=== PATIENT | female | born 1965 | race Caucasian/White ===

== ENCOUNTER 2018-08-23 00:52 | Emergency (ER) | payer BC ==
--- NOTE | 2018-08-23 01:35 | ED ---
General Adult HPI - General Chief complaint: Psychiatric Symptoms Stated complaint: petition Time Seen by Provider: 08/23/18 01:01 Source: patient Mode of arrival: ambulatory Limitations: no limitations - History of Present Illness Initial comments: Dictation was produced using [employer] dictation software. please excuse any grammatical, word or spelling errors. Chief Complaint: 53-year-old female presents with suicidal ideation. History of Present Illness: Patient is a 53-year-old female presents with suicidal ideation. Police was called for concern of suicidal ideation versus suicide attempt. Line first with was notified over the phone by a friend. Patient allegedly told the face. Friend that she was given overdose. Patient has been upset given that her children and grandchildren do not want to speak with her. Patient states she was given overdose on Unisom pills. She states that she isn't feeling suicidal anymore. She states she did not take anything today. The ROS documented in this emergency department record has been reviewed and confirmed by me. Those systems with pertinent positive or negative responses have been documented in the HPI. All other systems are other negative and/or noncontributory. PHYSICAL EXAM: General Impression: Alert and oriented x3, not in acute distress HEENT: Normocephalic atraumatic, extra-ocular movements intact, pupils equal and reactive to light bilaterally, mucous membranes moist. Cardiovascular: Heart regular rate and rhythm, S1&S2 audible, no murmurs, rubs or gallops Chest: Lungs clear to auscultation bilaterally, no rhonchi, no wheeze, no rales Abdomen: Bowel sounds present, abdomen soft, non-tender, non-distended, no organomegaly Musculoskeletal: Pulses present and equal in all extremities, no peripheral edema Motor: Power 5/5 bilaterally, no focal deficits noted Neurological: CN II-XII grossly intact, no focal motor or sensory deficits noted Skin: Intact with no visualized rashes Psych: Tearful ED course: 53-year-old female with suicidal ideation. Vital signs upon arrival are within acceptable limits. Patient evaluated medically cleared for EPS evaluation. Patient was evaluated by EPS deemed to be stable for discharge with good outpatient plan. Patient's instructed to follow-up with therapist for assistance with coping mechanisms. Patient not suicidal at this time. She is coherent and showing no signs of psychosis. Patient clear for discharge. - Related Data Allergies Allergy/AdvReac Type Severity Reaction Status Date / Time codeine AdvReac Rash/Hives Verified 08/23/18 00:59 Review of Systems ROS Statement: Those systems with pertinent positive or pertinent negative responses have been documented in the HPI. ROS Other: All systems not noted in ROS Statement are negative. Past Medical History Past Medical History: Hyperlipidemia History of Any Multi-Drug Resistant Organisms: None Reported Past Surgical History: Hysterectomy, Tubal Ligation Past Psychological History: Bipolar Smoking Status: Current every day smoker Past Alcohol Use History: None Reported Past Drug Use History: None Reported General Exam Limitations: no limitations Course Vital Signs 08/23/18 08/23/18 00:55 02:20 Temperature 98.3 F Pulse Rate 109 H Respiratory 18 19 Rate Blood Pressure 113/67 O2 Sat by Pulse 95 Oximetry Disposition Clinical Impression: Suicidal thoughts Disposition: HOME SELF-CARE Condition: Good Instructions (If sedation given, give patient instructions): Help Prevent Suicide in Older Adults (ED) Is patient prescribed a controlled substance at d/c from ED?: No Referrals: Tim Chao MD [Primary Care Provider] - 1-2 days Time of Disposition: 03:01
[2018-08-23 03:15] VITALS: BP 126/88; PULSE 78; RESP 16; TEMP 97.9
== END 2018-08-23 03:13 | disposition home or self-care (01) ==
LOC: EC 00:52
DX: R45.851 Suicidal ideations (principal); F17.200 Nicotine dependence, unspecified, uncomplicated; Z88.5 Allergy status to narcotic agent
CPT/HCPCS: 99285

== ENCOUNTER → 2019-02-05 | Outpatient (CLI) | payer BC | END | disposition home or self-care (01) | LOC: CPPFTMAIN 11:04 | PROVIDERS: ATTEND Internal Medicine | DX: J44.9 Chronic obstructive pulmonary disease, unspecified (principal); J98.4 Other disorders of lung | CPT/HCPCS: 94060; 94726; 94729 ==

== ENCOUNTER → 2019-02-21 | Outpatient (CLI) | payer BC ==
--- NOTE | 2019-02-24 09:44 | CT ---
EXAMINATION TYPE: High-resolution CT chest DATE OF EXAM: 02/21/2019 COMPARISON: 10/21/2012 HISTORY: 53-year-old female Shortness of breath, cough and interstitial lung disease. TECHNIQUE: Contiguous high-resolution axial scanning of the chest without IV contrast utilizing 1 mm slice thickness and 1 cm gap or HRCT protocol. Both supine and prone imaging was performed. CT DLP: 955.7 mGycm Automated exposure control for dose reduction was used. FINDINGS: Heart normal size with trace pericardial fluid effusion. Aorta normal caliber with conventional branching anatomy. No thoracic lymphadenopathy by CT size criteria allowing for HRCT technique. Scattered patchy areas of groundglass/mosaic attenuation. Overall distributions of the groundglass si milar between the supine and prone images. No honeycombing or dominant cystic change. No well-defined bronchiectasis, centrilobular nodules, thi ckening of the bronchovascular bundles, or tree-in-bud opacities. No pleural effusion. The patchy groundglass shows overall similar appearance to the 2012 exam. HRCT technique limits assessment for small pulmonary nodules. Visualized upper abdomen shows no gross abnormality. Bones: No osseous destructive process. IMPRESSION: 1. STABLE PATCHY AREAS OF GROUNDGLASS COULD REPRESENT PARENCHYMAL DISEASE SUCH IN THE SETTING OF N SIP OR MOSAIC ATTENUATION/AIR TRAPPING IN THE SETTING OF SMALL AIRWAYS DISEASE. OVERALL APPEARANCE IS SIMILAR DATING BACK TO 10/21/2012. NO HONEYCOMBING OR WELL-DEFINED BRONCHIECTASIS SEEN.
== END | disposition home or self-care (01) ==
LOC: RADCTMAIN 15:06
PROVIDERS: ATTEND Internal Medicine
DX: J98.8 Other specified respiratory disorders (principal); Z88.2 Allergy status to sulfonamides
CPT/HCPCS: 71250

== ENCOUNTER 2019-11-12 09:53 | Observation (INO) | payer BC ==
[2019-11-12] MEDS ORDERED: SODIUM CHLORIDE 0.9% 500 ML 500 ML IV STA (10:02)
[2019-11-12] MEDS ORDERED: methylPREDNISolone SOD SUCCI 125 MG/2 ML VIAL IV STA (10:02)
--- NOTE | 2019-11-12 10:09 | ED ---
General Adult HPI - General Chief complaint: Shortness of Breath Stated complaint: SOB,tachycardia Time Seen by Provider: 11/12/19 09:59 Source: patient, RN notes reviewed, old records reviewed Mode of arrival: ambulatory Limitations: no limitations - History of Present Illness Initial comments: 54-year-old female with COPD, current smoker presenting for evaluation of cough and dyspnea. Patient was seen by her business objects developer Dr. Haider this morning and sent in for evaluation and concern for pulmonary embolism. Patient was hypoxic and tachycardic in the office. Oxygen saturation of 85% with a heart rate in the 140s. She was recently admitted for COPD exacerbation approximately one week ago at an outside hospital. She continues to have cough and dyspnea. She denies central chest pain. Denies fever or chills. She denies lower extremity pain or swelling. Denies vomiting or diarrhea. - Related Data Allergies Allergy/AdvReac Type Severity Reaction Status Date / Time codeine AdvReac Rash/Hives Verified 11/12/19 10:00 Review of Systems ROS Statement: Those systems with pertinent positive or pertinent negative responses have been documented in the HPI. ROS Other: All systems not noted in ROS Statement are negative. Past Medical History Past Medical History: COPD, Hyperlipidemia History of Any Multi-Drug Resistant Organisms: None Reported Past Surgical History: Section, Hysterectomy, Tubal Ligation Past Psychological History: Bipolar Smoking Status: Current every day smoker Past Alcohol Use History: None Reported Past Drug Use History: None Reported General Exam Limitations: no limitations General appearance: alert, in no apparent distress Head exam: Present: atraumatic, normocephalic Eye exam: Present: normal appearance, PERRL ENT exam: Present: normal exam Neck exam: Present: normal inspection. Absent: tenderness, meningismus Respiratory exam: Present: respiratory distress, wheezes, rales Cardiovascular Exam: Present: normal rhythm, tachycardia GI/Abdominal exam: Present: soft, distended. Absent: tenderness, guarding, rebound Extremities exam: Present: normal inspection, normal capillary refill. Absent: pedal edema, calf tenderness Neurological exam: Present: alert, oriented X3, CN II-XII intact. Absent: motor sensory deficit Psychiatric exam: Present: normal affect, normal mood Skin exam: Present: warm, dry, intact. Absent: cyanosis, diaphoretic Course Vital Signs 05/27/20 05/27/20 09:57 10:40 Temperature 99.4 F Pulse Rate 122 H 112 H Respiratory 22 22 Rate Blood Pressure 123/70 143/92 O2 Sat by Pulse 94 L 95 Oximetry EKG Findings - EKG Comments: EKG Findings:: EKG: Sinus tachycardia, rate of 1:15, rightward access, VA interval 148, QRS duration 66, QTC 434, no ST segment elevation. Medical Decision Making - Medical Decision Making 54-year-old female with COPD. Chest x-ray negative for pneumothorax, no focal pneumonia. Patient sent in to rule out pulmonary embolism, CT angiography is negative for PE. She has a normal CBC with the exception of mild leukocytosis, normal electrolytes, elevated glucose. She has a negative troponin, negative BNP. She will be admitted for COPD exacerbation. Case is discussed with Dr. Manuel who will admit. - Lab Data Result diagrams: 11/12/19 10:24 11/12/19 10:24 Lab Results 11/12/19 11/12/19 11/12/19 Range/Units 10:24 10:24 10:24 WBC 12.3 H (3.8-10.6) k/uL RBC 5.15 (3.80-5.40) m/uL Hgb 15.4 (11.4-16.0) gm/dL Hct 47.0 H (34.0-46.0) % MCV 91.3 (80.0-100.0) fL MCH 29.8 (25.0-35.0) pg MCHC 32.7 (31.0-37.0) g/dL RDW 13.5 (11.5-15.5) % Plt Count 200 (150-450) k/uL Neutrophils % 73 % Lymphocytes % 18 % Monocytes % 5 % Eosinophils % 2 % Basophils % 0 % Neutrophils # 9.0 H (1.3-7.7) k/uL Lymphocytes # 2.2 (1.0-4.8) k/uL Monocytes # 0.7 (0-1.0) k/uL Eosinophils # 0.2 (0-0.7) k/uL Basophils # 0.0 (0-0.2) k/uL PT 9.8 (9.0-12.0) sec INR 0.9 (<1.2) APTT 25.4 (22.0-30.0) sec Sodium 136 L (137-145) mmol/L Potassium 4.5 (3.5-5.1) mmol/L Chloride 105 (98-107) mmol/L Carbon Dioxide 21 L (22-30) mmol/L Anion Gap 10 mmol/L BUN 13 (7-17) mg/dL Creatinine 0.56 (0.52-1.04) mg/dL Est GFR (CKD-EPI)AfAm >90 (>60 ml/min/1.73 sqM) Est GFR (CKD-EPI)NonAf >90 (>60 ml/min/1.73 sqM) Glucose 254 H (74-99) mg/dL Calcium 9.3 (8.4-10.2) mg/dL Magnesium 1.7 (1.6-2.3) mg/dL Total Bilirubin 0.2 (0.2-1.3) mg/dL AST 24 (14-36) U/L ALT 24 (4-34) U/L Alkaline Phosphatase 106 (38-126) U/L Troponin I (0.000-0.034) ng/mL NT-Pro-B Natriuret Pep pg/mL Total Protein 7.4 (6.3-8.2) g/dL Albumin 4.3 (3.5-5.0) g/dL 11/12/19 11/12/19 Range/Units 10:24 10:24 WBC (3.8-10.6) k/uL RBC (3.80-5.40) m/uL Hgb (11.4-16.0) gm/dL Hct (34.0-46.0) % MCV (80.0-100.0) fL MCH (25.0-35.0) pg MCHC (31.0-37.0) g/dL RDW (11.5-15.5) % Plt Count (150-450) k/uL Neutrophils % % Lymphocytes % % Monocytes % % Eosinophils % % Basophils % % Neutrophils # (1.3-7.7) k/uL Lymphocytes # (1.0-4.8) k/uL Monocytes # (0-1.0) k/uL Eosinophils # (0-0.7) k/uL Basophils # (0-0.2) k/uL PT (9.0-12.0) sec INR (<1.2) APTT (22.0-30.0) sec Sodium (137-145) mmol/L Potassium (3.5-5.1) mmol/L Chloride (98-107) mmol/L Carbon Dioxide (22-30) mmol/L Anion Gap mmol/L BUN (7-17) mg/dL Creatinine (0.52-1.04) mg/dL Est GFR (CKD-EPI)AfAm (>60 ml/min/1.73 sqM) Est GFR (CKD-EPI)NonAf (>60 ml/min/1.73 sqM) Glucose (74-99) mg/dL Calcium (8.4-10.2) mg/dL Magnesium (1.6-2.3) mg/dL Total Bilirubin (0.2-1.3) mg/dL AST (14-36) U/L ALT (4-34) U/L Alkaline Phosphatase (38-126) U/L Troponin I <0.012 (0.000-0.034) ng/mL NT-Pro-B Natriuret Pep 23 pg/mL Total Protein (6.3-8.2) g/dL Albumin (3.5-5.0) g/dL Critical Care Time Critical Care Time: Yes Total Critical Care Time: 35 Disposition Clinical Impression: Acute exacerbation of chronic obstructive pulmonary disease Disposition: ADMITTED IP TO THIS [facility] Condition: Stable Is patient prescribed a controlled substance at d/c from ED?: No Referrals: Tim Chao MD [Primary Care Provider] - 1-2 days Decision to Admit Reason: Admit from EC Decision Date: 11/12/19 Decision Time: 11:33
--- NOTE | 2019-11-12 10:28 | XR ---
EXAMINATION TYPE: XR chest 1V portable DATE OF EXAM: 11/12/2019 COMPARISON: Chest x-ray April 17, 2011. CT chest high resolution February 21, 2019 HISTORY: Difficulty in breathing. TECHNIQUE: Single AP portable frontal view of the chest is obtained. FINDINGS: There is some chronic parenchymal change without suspicious focal air space opacity, pleur al effusion, or pneumothorax seen. The cardiac silhouette size is stable and mildly enlarged. The osseous structures are intact. IMPRESSION: Chronic changes and mild cardiomegaly without acute pulmonary process.
[2019-11-12 10:43] LABS: Basophils % (A) 0 %; Eosinophils # (A) 0.2 k/uL (0-0.7); Eosinophils % (A) 2 %; HGB 15.4 gm/dL (11.4-16.0); Lymphocytes # (A) 2.2 k/uL (1.0-4.8); Lymphocytes % (A) 18 %; MCH 29.8 pg (25.0-35.0); MCHC 32.7 g/dL (31.0-37.0); MCV 91.3 fL (80.0-100.0); Mean Platelet Volume 9.7; Monocytes # (A) 0.7 k/uL (0-1.0); Monocytes % (A) 5 %; Neutrophils % (A) 73 %; Platelet Count 200 k/uL (150-450); RBC 5.15 m/uL (3.80-5.40); RDW 13.5 % (11.5-15.5); WBC 12.3 k/uL (3.8-10.6)
[2019-11-12 10:54] LABS: INR 0.9 (<1.2); Partial Thromboplastin Time 25.4 sec (22.0-30.0); Prothrombin Time 9.8 sec (9.0-12.0)
[2019-11-12 10:55] LABS: Albumin 4.3 g/dL (3.5-5.0); Chloride 105 mmol/L (98-107); Glucose 254 mg/dL (74-99); Potassium 4.5 mmol/L (3.5-5.1); Total Protein 7.4 g/dL (6.3-8.2)
[2019-11-12 10:56] LABS: ALT 24 U/L (4-34); AST 24 U/L (14-36); African American GFR (CKD) >90 (>60 ml/min/1.73 sqM); Alkaline Phosphatase 106 U/L (38-126); Anion Gap 10 mmol/L; Blood Urea Nitrogen 13 mg/dL (7-17); Calcium 9.3 mg/dL (8.4-10.2); Carbon Dioxide 21 mmol/L (22-30); Magnesium 1.7 mg/dL (1.6-2.3); Non-African American GFR(CKD) >90 (>60 ml/min/1.73 sqM); Sodium 136 mmol/L (137-145); Total Bilirubin 0.2 mg/dL (0.2-1.3)
--- NOTE | 2019-11-12 11:22 | CT ---
EXAMINATION TYPE: CT angio chest DATE OF EXAM: 11/12/2019 COMPARISON: 02/21/2019 HISTORY: SOB CT DLP: 492.5 mGycm CONTRAST: CT chest with contrast and 3D reconstruction with MIP imaging is performed with IV Contrast, patient injected with 100 mL of Isovue 370. Contrast-enhanced CT of the chest was performed through the course of the pulmonary arteries with anaid g and mediastinal window settings submitted. 3D reconstruction with MIP imaging was also performed. PULMONARY ARTERIES: The pulmonary arteries and their major tributaries are patent. I do not see maris dence for sizable filling defect to suggest pulmonary embolic process. LUNGS: There is scattered subpleural fibrosis as well as chronic appearing groundglass infiltrates. N o evidence for airspace consolidation. Right middle lobe linear atelectasis. MEDIASTINUM: Thoracic aorta is of normal caliber,however, evaluation is limited given timing of the contrast bolus. If there is concern for thoracic aortic pathology consider MARGIE. Correlate clinicall y . The heart is not enlarged. No evidence for mediastinal mass. No mediastinal lymph nodes greater than 1cm. HILAR STRUCTURES: No evidence for mass. No hilar lymph nodes greater than 1 cm. UPPER ABDOMEN: No significant abnormality is seen. IMPRESSION: 1. No evidence for Pulmonary embolism at this time.
[2019-11-12] MEDS ORDERED: IPRATROPIUM-ALBUTEROL 3 ML NEB INHALATION PRN (11:29)
[2019-11-12] MEDS ORDERED: SODIUM CHLORIDE 0.9% 500 ML 500 ML IV ONE (11:32)
[2019-11-12] MEDS ORDERED: ALBUTEROL NEBULIZED 2.5 MG/3 ML INHALATION PRN (11:32)
[2019-11-12] MEDS: SODIUM CHLORIDE 0.9% 1,000 ML IV SCH (12:48)
--- NOTE | 2019-11-12 13:51 | P.HPIM ---
History of Present Illness 53-year-old female with known history of COPD was recently discharged from [facility] hospital came back with shortness of breath significant wheezing cough without any significant sputum production. Patient has significant wheezing on exam continues to smoke about pack per day patient used to smoke more than that. Patient had a CT angios the pulmonary embolism which did not show any PERRLA pneumonia chest x-ray is within normal limits as well. Patient blood sugars are high we will obtain hemoglobin A1c recently started on sliding scale insulin cut down the steroids to 40 twice a day IV the patient doesn't use any oxygen at home presently on 3 L and patient was told that she will require oxygen at home by her civil laboratory technician Dr. Haider Review of Systems REVIEW OF SYSTEMS: CONSTITUTIONAL: No fever, no malaise, no fatigue. HEENT: No recent visual problems or hearing problems. Denied any sore throat. CARDIOVASCULAR: No chest pain, orthopnea, PND, no palpitations, no syncope. PULMONARY: As mentioned in HPI GASTROINTESTINAL: No diarrhea, no nausea, no vomiting, no abdominal pain. NEUROLOGICAL: No headaches, no weakness, no numbness. HEMATOLOGICAL: Denies any bleeding or petechiae. GENITOURINARY: Denies any burning micturition, frequency, or urgency. MUSCULOSKELETAL/RHEUMATOLOGICAL: Denies any joint pain, swelling, or any muscle pain. ENDOCRINE: Denies any polyuria or polydipsia. The rest of the 14-point review of systems is negative. Past Medical History Past Medical History: COPD, Hyperlipidemia History of Any Multi-Drug Resistant Organisms: None Reported Past Surgical History: Section, Hysterectomy, Tubal Ligation Past Psychological History: Bipolar Smoking Status: Current every day smoker Past Alcohol Use History: None Reported Past Drug Use History: None Reported Medications and Allergies Allergies Allergy/AdvReac Type Severity Reaction Status Date / Time codeine AdvReac Rash/Hives Verified 11/12/19 10:00 Physical Exam Vitals: Vital Signs Temp Pulse Resp BP Pulse Ox 11/12/19 11:36 99.2 F 105 H 20 138/78 95 11/12/19 10:40 112 H 22 143/92 95 11/12/19 09:57 99.4 F 122 H 22 123/70 94 L Intake and Output 11/11/19 11/12/19 11/12/19 22:59 06:59 14:59 Other: Weight 87.543 kg PHYSICAL EXAMINATION: GENERAL: The patient is alert and oriented x3, not in any acute distress. Well developed, well nourished. HEENT: Pupils are round and equally reacting to light. EOMI. No scleral icterus. No conjunctival pallor. Normocephalic, atraumatic. No pharyngeal erythema. No thyromegaly. CARDIOVASCULAR: S1 and S2 present. No murmurs, rubs, or gallops. PULMONARY: Significantly limited air entry into bilateral lung sommers significant wheezing on exam. ABDOMEN: Soft, nontender, nondistended, normoactive bowel sounds. No palpable organomegaly. MUSCULOSKELETAL: No joint swelling or deformity. EXTREMITIES: No cyanosis, clubbing, or pedal edema. NEUROLOGICAL: Gross neurological examination did not reveal any focal deficits. SKIN: No rashes. Results CBC & Chem 7: 11/12/19 10:24 11/12/19 10:24 Labs: Abnormal Lab Results - Last 24 Hours (Table) 11/12/19 11/12/19 11/12/19 Range/Units 10:24 10:24 10:24 WBC 12.3 H (3.8-10.6) k/uL Hct 47.0 H (34.0-46.0) % Neutrophils # 9.0 H (1.3-7.7) k/uL Sodium 136 L (137-145) mmol/L Carbon Dioxide 21 L (22-30) mmol/L Glucose 254 H (74-99) mg/dL Plasma Lactic Acid Dre 2.4 H* (0.7-2.0) mmol/L Assessment and Plan Plan: -Acute hypoxic and hypercapnic respiratory failure: Secondary to COPD exacerbation can you suspect steroids inhalational treatments. IV fluids -Elevated blood sugars will rule out diabetes mellitus will obtain hemoglobin A 1C Carm[place] with sliding scale insulin -Continued nicotine use: Counseling was provided. DVT prophylaxis: Early ambulation
[2019-11-12] MEDS ORDERED: methylPREDNISolone SOD SUCCI 125 MG/2 ML VIAL IV SCH (14:00)
[2019-11-12 17:02] LABS: Glucose,Whole Blood 180 mg/dL (75-99)
[2019-11-12] MEDS: IPRATROPIUM-ALBUTEROL 3 ML NEB INHALATION SCH ×2 (20:26→20:27)
[2019-11-12] MEDS ORDERED: DIAZEPAM 5 MG TAB PO PRN (20:55)
[2019-11-12] MEDS ORDERED: PANTOPRAZOLE 40 MG TABLET PO SCH (21:00)
[2019-11-12] MEDS ORDERED: risperiDONE 1 MG TAB PO SCH (21:00)
[2019-11-12] MEDS ORDERED: FLUoxetine HCL 20 MG CAP PO SCH (21:00)
[2019-11-12] MEDS ORDERED: lamoTRIgine 100 MG TAB PO SCH (21:00)
[2019-11-12 22:18] LABS: Glucose,Whole Blood 193 mg/dL (75-99)
[2019-11-12 22:21] LABS: Hemoglobin A1C 5.5 % (4.0-6.0)
[2019-11-12] MEDS: FAMOTIDINE 20 MG TAB PO SCH ×2 (22:25→22:37)
[2019-11-12] MEDS: INSULIN ASPART (NovoLOG) 100 UNIT/ML VIAL SQ SCH ×2 (22:25→22:35)
[2019-11-12] MEDS: methylPREDNISolone SOD SUCCI 40 MG/ML 1 ML VIAL IV SCH (22:35)
[2019-11-12] MEDS: NICOTINE 14MG/24HR PATCH TRANSDERM SCH (22:47)
[2019-11-13] MEDS: SODIUM CHLORIDE 0.9% 1,000 ML IV SCH (01:51)
[2019-11-13 07:24] LABS: Glucose,Whole Blood 186 mg/dL (75-99)
[2019-11-13] MEDS: INSULIN ASPART (NovoLOG) 100 UNIT/ML VIAL SQ SCH ×2 (07:32→12:47)
[2019-11-13] MEDS: FAMOTIDINE 20 MG TAB PO SCH (07:33)
[2019-11-13] MEDS: methylPREDNISolone SOD SUCCI 40 MG/ML 1 ML VIAL IV SCH (07:33)
[2019-11-13] MEDS: NICOTINE 14MG/24HR PATCH TRANSDERM SCH (07:34)
[2019-11-13] MEDS: IPRATROPIUM-ALBUTEROL 3 ML NEB INHALATION SCH ×3 (07:38→16:36)
[2019-11-13] MEDS ORDERED: SYMBICORT 160-4.5 MCG INHALER INHALATION SCH (08:00)
[2019-11-13 08:11] VITALS: TEMP 98
[2019-11-13] MEDS ORDERED: ACETAMINOPHEN TAB 325 MG TAB PO PRN (08:34)
[2019-11-13] MEDS ORDERED: lamoTRIgine 100 MG TAB PO SCH (09:00)
[2019-11-13] MEDS ORDERED: ENOXAPARIN 40 MG/0.4 ML SYRINGE SQ SCH (09:00)
[2019-11-13 10:23] LABS: Basophils % (A) 0 %; Eosinophils % (A) 0 %; HCT 43.3 % (34.0-46.0); Lymphocytes # (A) 1.7 k/uL (1.0-4.8); Lymphocytes % (A) 10 %; MCH 30.5 pg (25.0-35.0); MCHC 32.5 g/dL (31.0-37.0); Mean Platelet Volume 10.2; Monocytes # (A) 0.7 k/uL (0-1.0); Monocytes % (A) 4 %; Neutrophils # (A) 14.1 k/uL (1.3-7.7); Neutrophils % (A) 84 %; Platelet Count 191 k/uL (150-450); RDW 13.7 % (11.5-15.5); WBC 16.7 k/uL (3.8-10.6)
[2019-11-13 10:40] LABS: African American GFR (CKD) >90 (>60 ml/min/1.73 sqM); Anion Gap 6 mmol/L; Blood Urea Nitrogen 10 mg/dL (7-17); Carbon Dioxide 24 mmol/L (22-30); Chloride 109 mmol/L (98-107); Glucose 194 mg/dL (74-99); Non-African American GFR(CKD) >90 (>60 ml/min/1.73 sqM); Potassium 4.6 mmol/L (3.5-5.1); Sodium 139 mmol/L (137-145)
[2019-11-13 10:59] VITALS: BP 132/70; RESP 16
[2019-11-13 11:59] LABS: Glucose,Whole Blood 168 mg/dL (75-99)
[2019-11-13 12:08] VITALS: PULSE 92
--- NOTE | 2019-11-13 12:22 | CONS ---
CONSULTATION PULMONARY/CRITICAL CARE CONSULTATION: DATE OF CONSULTATION: 11/13/2019 This is a 54-year-old female who sees my partner, Dr. Haider in the office. She apparently was seen there yesterday for a COPD exacerbation and Dr. Haider sent her over to the hospital to be evaluated and admitted to the hospital. She came with complaints of shortness of breath, chest tightness, cough, wheezing, and phlegm production. In addition, she was quite hypoxemic in the office. The saturations only in the mid 80s. She had a heart rate of 140. She has been smoking since the age of 13. Smokes about 1-1/2 packs a day. States today that she is going to quit smoking once and for all. Her primary care physician is Dr. Chao. She is feeling much better. She would like to be discharged home. I told her we would send her home on some O2 at 2 L/minute by nasal cannula and a prednisone burst and taper beginning with 40 mg a day for 4 days and tapering down by 10 mg every fifth day. In addition, she should follow up with Dr. Haider in the office. ALLERGIES: CODEINE. HOME MEDICATIONS: Include albuterol inhaler, diazepam, Risperdal, Symbicort, Protonix, Lamictal, nicotine patch, and Prozac. MEDICAL HISTORY: Includes COPD and hyperlipidemia. She also has a history of bipolar disorder. SURGICAL HISTORY: Includes tubal ligation, hysterectomy, and . SOCIAL HISTORY: Positive for ongoing tobacco use. She has been smoking since age of 13. She smokes 1- 1/2 packs a day. She states that she will quit smoking after this event. She denies any alcohol use or illicit drug use. FAMILY HISTORY: Noncontributory. Both mother and father were healthy. REVIEW OF SYSTEMS: CONSTITUTIONAL: Negative. NEUROLOGIC: Negative. HEENT: Negative. CARDIOVASCULAR: Negative. PULMONARY: Shortness of breath, chest tightness, wheezing, cough and brown phlegm production. GI: Negative. : Negative. RHEUMATOLOGIC: Negative. IMMUNOLOGIC: Negative. ENDOCRINOLOGIC: Negative. DERMATOLOGIC: Negative. Current vital signs are reviewed. Temperature is 98, heart rate 101, respiratory rate 16, blood pressure 132/70, mean 90, 3 L saturation 94%. Appears in no acute distress. No conversational dyspnea, use of accessory muscles or audible wheezing. HEENT: Examination is grossly unremarkable. Nasal O2 in place. NECK: Supple, full range of motion. No adenopathy or thyromegaly. Neck veins are flat. CARDIOVASCULAR: Examination reveals regular rhythm and rate. She is mildly tachycardic. Heart rate right around 100. It is in sinus. S1, S2 normal. Heart sounds are somewhat distant. There is no murmur. LUNGS: Reveal a few scattered expiratory rhonchi. No crackles. Mild prolongation on forced maneuver. Some mild expiratory wheezes on forced maneuver. ABDOMEN: Obese, bowel sounds are heard. EXTREMITIES: Intact. No cyanosis, clubbing, or edema. SKIN: Without rash. NEUROLOGIC: Examination is brief but nonfocal. She does move all 4 extremities. She is alert and oriented x3. LAB: Data is reviewed. White count 16.7, hemoglobin, hematocrit and platelet count all normal. Sodium 139, potassium 4.6, chloride is 109, CO2 is 24, anion gap is 6. BUN and creatinine were 10 and 0.46. Lactic acid was normal. Chest x-ray shows primarily changes of COPD with some mild chronic changes. There is also cardiomegaly. Chest CT is negative for pulmonary embolism. Current medications are reviewed. From the pulmonary standpoint, she is on Symbicort, albuterol, steroids, and DuoNeb. She is currently not on any oral antibiotic. ASSESSMENT: 1. Chronic obstructive pulmonary disease exacerbation complicated by purulent tracheobronchitis, without mireya pneumonia. 2. Ongoing tobacco use with nicotine addiction, somebody who has been smoking since the age of 13[address] angiogram evidence of pulmonary embolism at this time. 4. Obesity. 5. History of hyperlipidemia. 6. History of bipolar disorder. PLAN: From our perspective, the patient could be discharged home. She is feeling much better. She really asked to go home. I told her we could send her home as long she does not smoke. We warned her about the affects or the hazards of smoking while on oxygen therapy. We will send her home on O2 at 2 L. She will follow up with Dr. Haider. I also think we should send her home on prednisone with a burst and taper beginning with 40 mg a day for 4 days, reducing the dose by 10 mg every fifth day. In addition, she should go home on a short course of oral antibiotics and continue the current medications that she has on home. Ultimately, her success will be whether not she can actually stop smoking. There is a high rate of recidivism in the sorts of patients who smoke for this many years. I suspect that she will eventually start smoking again. No additional recommendations are made. Prognosis is guarded. Will continue to follow as needed. A copy of today's note will go to Dr. Chao and also to Dr. Hsu, my partner. MMODL / IJN: [id number] /
--- NOTE | 2019-11-13 14:34 | P.DS ---
Providers Date of admission: 11/12/19 11:29 Attending physician: Yudi Manuel Consults: 11/12/19 11:33 Consult Physician Routine Consulting Provider: Rakan Haider Consult Reason/Comments: COPD Do you want consulting provider notified?: Yes Primary care physician: Zhanna Dumont [place] [facility] Course: Patient is a 54-year-old the female admitted for COPD exacerbation, patient is still wheezing significantly my opinion patient will benefit from one or 2 more days of hospitalization but the patient is insisting on discharge and patient was cleared by pulmonology to be discharged as long as she is on some kind of a systemic steroids and doesn't smoke again I believe patient is going to do okay and the patient is being discharged on 2 L of oxygen. Patient requiring home oxygen at this point of time. Patient says that she is not to going to smoke again. PHYSICAL EXAMINATION: GENERAL: The patient is alert and oriented x3, not in any acute distress. Well developed, well nourished. HEENT: Pupils are round and equally reacting to light. EOMI. No scleral icterus. No conjunctival pallor. Normocephalic, atraumatic. No pharyngeal erythema. No thyromegaly. CARDIOVASCULAR: S1 and S2 present. No murmurs, rubs, or gallops. PULMONARY: Patient still has expiratory wheeze but Better Compared to Yesterday ABDOMEN: Soft, nontender, nondistended, normoactive bowel sounds. No palpable organomegaly. MUSCULOSKELETAL: No joint swelling or deformity. EXTREMITIES: No cyanosis, clubbing, or pedal edema. NEUROLOGICAL: Gross neurological examination did not reveal any focal deficits. SKIN: No rashes. Refer to HPI for further details of hospitalization and medical problems that were addressed during this hospitalization Patient Condition at Discharge: Stable Plan - Discharge Summary Discharge Rx Participant: No New Discharge Prescriptions: New Doxycycline Monohydrate [Monodox] 100 mg PO BID 3 Days #6 cap Famotidine [Pepcid] 20 mg PO BID #30 tablet predniSONE 10 mg PO DAILY #30 tab Ipratropium-Albuterol Nebulize [Duoneb 0.5 mg-3 mg/3 ml Soln] 3 ml INHALATION RT-QID ml Ipratropium-Albuterol Nebulize [Duoneb 0.5 mg-3 mg/3 ml Soln] 3 ml INHALATION RT-Q4H PRN ml PRN Reason: Shortness Of Breath Or Wheezin Continue Albuterol Inhaler [Ventolin Hfa Inhaler] 2 puff INHALATION RT-Q6H PRN PRN Reason: Shortness Of Breath Budesonide-Formot 160-4.5 Mcg [Symbicort 160-4.5 Mcg Inhaler] 2 puff INHALATION RT-BID Diazepam 10 mg PO TID PRN PRN Reason: Anxiety FLUoxetine HCL [PROzac] 20 mg PO HS lamoTRIgine 200 mg PO HS lamoTRIgine 100 mg PO QAM Nicotine 14Mg/24Hr Patch [Habitrol] 1 patch TRANSDERM DAILY Pantoprazole [Protonix] 40 mg PO HS risperiDONE 3 mg PO HS Discharge Medication List Albuterol Inhaler [Ventolin Hfa Inhaler] 2 puff INHALATION RT-Q6H PRN 11/12/19 [History] Budesonide-Formot 160-4.5 Mcg [Symbicort 160-4.5 Mcg Inhaler] 2 puff INHALATION RT-BID 11/12/19 [History] Diazepam 10 mg PO TID PRN 11/12/19 [History] FLUoxetine HCL [PROzac] 20 mg PO HS 11/12/19 [History] Nicotine 14Mg/24Hr Patch [Habitrol] 1 patch TRANSDERM DAILY 11/12/19 [History] Pantoprazole [Protonix] 40 mg PO HS 11/12/19 [History] lamoTRIgine 100 mg PO QAM 11/12/19 [History] lamoTRIgine 200 mg PO HS 11/12/19 [History] risperiDONE 3 mg PO HS 11/12/19 [History] Doxycycline Monohydrate [Monodox] 100 mg PO BID 3 Days #6 cap 11/13/19 [Rx] Famotidine [Pepcid] 20 mg PO BID #30 tablet 11/13/19 [Rx] Ipratropium-Albuterol Nebulize [Duoneb 0.5 mg-3 mg/3 ml Soln] 3 ml INHALATION RT-Q4H PRN ml 11/13/19 [Rx] Ipratropium-Albuterol Nebulize [Duoneb 0.5 mg-3 mg/3 ml Soln] 3 ml INHALATION RT-QID ml 11/13/19 [Rx] predniSONE 10 mg PO DAILY #30 tab 11/13/19 [Rx] Follow up Appointment(s)/Referral(s): Rakan Haider MD [STAFF PHYSICIAN] - 1 Week Tim Chao MD [Primary Care Provider] - 3 Days [facility],Equipment [NON-STAFF] - As Needed (oxygen and wheelchair) Activity/Diet/Wound Care/Special Instructions: Activity Limited until follow-up [facility] will deliver a portable oxygen tank to the bedside before discharge and a concentrator to the patient's house this evening. Patient to call [facility] to arrange delivery of the concentrator tonight: [phone]. A wheelchair will be delivered to the bedside as well. Follow-up with primary care provider upon discharge Follow-up with pulmonary in the outpatient setting Continue with a prednisone taper Continue with antibiotics until finished Continue current diet Avoid all tobacco use Discharge Disposition: HOME SELF-CARE
--- NOTE | 2019-11-13 14:42 | P.DS ---
Providers Date of admission: 11/12/19 11:29 Expected date of discharge: 11/13/19 Attending physician: Yudi Manuel Consults: 11/12/19 11:33 Consult Physician Routine Consulting Provider: Rakan Haider Reason/Comments: COPD Do you want consulting provider notified?: Yes Primary care physician: Zhanna Chou [place] [facility] Course: Final diagnosis -Acute hypoxic and hypercapnic respiratory failure: Secondary to COPD exacerbation -Elevated blood sugars ruled out diabetes mellitus, hemoglobin A1c is 5.5 -Continued nicotine use: Counseling was provided. -DVT prophylaxis Discharge disposition Patient is being discharged in a stable condition with guarded prognosis to home and will follow-up with Dr. Chao upon discharge. Patient will also follow-up with Dr. Haider in the outpatient setting. Patient will continue on a short course of oral antibiotics in the form of doxycycline for the next 3 days along with a prednisone taper. Patient also provided prescription for home O2 oxygen she is currently requiring 2 L via nasal cannula due to her COPD and shortness of breath. Total time taken is 35 minutes. History of present illness This is a 54-year-old female who was recently admitted with COPD and significant wheezing and was being closely monitored. Pulmonary evaluated the patient and patient will be following up outpatient with Dr. Haider. Patient underwent a CT angiogram which did not reveal any pulmonary embolism during hospitalization. Patient is about a 1-1/2 pack per day smoker and states that she will be attempting to quit tobacco use upon discharge. Discussed with the patient at length about avoiding any tobacco use and also stressed the importance of safety with the use of oxygen in the outpatient setting. Patient states that she does have prescriptions for nicotine patches and will get them filled this time. Patient continues to have dyspnea and low oxygen saturations in the 80s on room air and will require 2 L of home oxygen upon discharge. Patient will also continue on a prednisone taper along with a short course of oral doxycycline twice daily for the next 3 days. A prescription was provided for a wheelchair as patient becomes severely dyspneic with exertion requiring multiple rest periods when walking. Currently no reports of chest pain, worsening shortness of breath, or palpitations. Patient is afebrile. No reports of nausea or vomiting and patient is tolerating diet. Patient is requesting to go home today. Guarded prognosis. On exam vital signs are stable. Temp is 98.0F, pulse is 92, respirations are 16, blood pressure is 132/70, oxygen saturation is 94 % on 3 L via nasal cannula. Cardio S1, S2 are present. Respiratory system shows diminished breath sounds at the bases with no crackles or rhonchi noted. Mild expiratory wheezing noted on exam. Abdomen is soft and nontender. Nervous system shows no focal deficits. Please refer to medication reconciliation sheet for a list of medications. Patient Condition at Discharge: Stable Plan - Discharge Summary Discharge Rx Participant: No New Discharge Prescriptions: New Doxycycline Monohydrate [Monodox] 100 mg PO BID 3 Days #6 cap predniSONE 10 mg PO DAILY #30 tab Ipratropium-Albuterol Nebulize [Duoneb 0.5 mg-3 mg/3 ml Soln] 3 ml INHALATION RT-QID ml Ipratropium-Albuterol Nebulize [Duoneb 0.5 mg-3 mg/3 ml Soln] 3 ml INHALATION RT-Q4H PRN ml PRN Reason: Shortness Of Breath Or Wheezin Continue Albuterol Inhaler [Ventolin Hfa Inhaler] 2 puff INHALATION RT-Q6H PRN PRN Reason: Shortness Of Breath Budesonide-Formot 160-4.5 Mcg [Symbicort 160-4.5 Mcg Inhaler] 2 puff INHALATION RT-BID Diazepam 10 mg PO TID PRN PRN Reason: Anxiety FLUoxetine HCL [PROzac] 20 mg PO HS lamoTRIgine 200 mg PO HS lamoTRIgine 100 mg PO QAM Nicotine 14Mg/24Hr Patch [Habitrol] 1 patch TRANSDERM DAILY Pantoprazole [Protonix] 40 mg PO HS risperiDONE 3 mg PO HS Discharge Medication List Albuterol Inhaler [Ventolin Hfa Inhaler] 2 puff INHALATION RT-Q6H PRN 11/12/19 [History] Budesonide-Formot 160-4.5 Mcg [Symbicort 160-4.5 Mcg Inhaler] 2 puff INHALATION RT-BID 11/12/19 [History] Diazepam 10 mg PO TID PRN 11/12/19 [History] FLUoxetine HCL [PROzac] 20 mg PO HS 11/12/19 [History] Nicotine 14Mg/24Hr Patch [Habitrol] 1 patch TRANSDERM DAILY 11/12/19 [History] Pantoprazole [Protonix] 40 mg PO HS 11/12/19 [History] lamoTRIgine 100 mg PO QAM 11/12/19 [History] lamoTRIgine 200 mg PO HS 11/12/19 [History] risperiDONE 3 mg PO HS 11/12/19 [History] Doxycycline Monohydrate [Monodox] 100 mg PO BID 3 Days #6 cap 11/13/19 [Rx] Ipratropium-Albuterol Nebulize [Duoneb 0.5 mg-3 mg/3 ml Soln] 3 ml INHALATION RT-Q4H PRN ml 11/13/19 [Rx] Ipratropium-Albuterol Nebulize [Duoneb 0.5 mg-3 mg/3 ml Soln] 3 ml INHALATION RT-QID ml 11/13/19 [Rx] predniSONE 10 mg PO DAILY #30 tab 11/13/19 [Rx] Follow up Appointment(s)/Referral(s): Rakan Haider MD [STAFF PHYSICIAN] - 1 Week Tim Chao MD [Primary Care Provider] - 3 Days [facility],Equipment [NON-STAFF] - As Needed (oxygen and wheelchair) Activity/Diet/Wound Care/Special Instructions: Activity Limited until follow-up [facility] will deliver a portable oxygen tank to the bedside before discharge and a concentrator to the patient's house this evening. Patient to call [facility] to arrange delivery of the concentrator tonight: [phone]. A wheelchair will be delivered to the bedside as well. Follow-up with primary care provider upon discharge Follow-up with pulmonary in the outpatient setting Continue with a prednisone taper Continue with antibiotics until finished Continue current diet Avoid all tobacco use Discharge Disposition: HOME SELF-CARE
== END 2019-11-13 15:30 | disposition home or self-care (01) ==
LOC: EC 09:53 → 4SSUR 11:29 → 1SOBS 11-13 10:44
PROVIDERS: ADMIT Internal Medicine; ATTEND Internal Medicine
DX: J96.02 Acute respiratory failure with hypercapnia (principal); J96.01 Acute respiratory failure with hypoxia; F17.210 Nicotine dependence, cigarettes, uncomplicated; J44.1 Chronic obstructive pulmonary disease with (acute) exacerbation; Z03.818 Encounter for observation for suspected exposure to other biological agents ruled out; R73.9 Hyperglycemia, unspecified; E78.5 Hyperlipidemia, unspecified; F31.9 Bipolar disorder, unspecified; Z90.710 Acquired absence of both cervix and uterus; Z98.51 Tubal ligation status; Z98.890 Other specified postprocedural states; E66.9 Obesity, unspecified; Z68.39 Body mass index [BMI] 39.0-39.9, adult; Z79.51 Long term (current) use of inhaled steroids; Z79.899 Other long term (current) drug therapy; Z88.5 Allergy status to narcotic agent
CPT/HCPCS: 96376 ×2; 96361; 96374; 99291; 36415; 94640 ×2; 93005; 83880; 80053; 80048; 83605; 83735; 84484; 85025 ×2; 85610; 85730; 87040; 83036; 71045; 71275; G0378 ×2; U0003; S4990 ×2; J2920 ×2; J2930; J1650; Q9967

== ENCOUNTER 2019-12-28 15:28 | Inpatient (IN) | payer BC ==
[2019-12-28] MEDS ORDERED: ASPIRIN 81 MG PO STA (15:59)
[2019-12-28] MEDS ORDERED: NITROGLYCERIN OINT 1 INCH/GM PACKET TOPICAL STA (15:59)
--- NOTE | 2019-12-28 16:06 | ED ---
General Adult HPI - General Chief complaint: Chest Pain Stated complaint: Chest Pain Time Seen by Provider: 12/28/19 15:40 Source: patient, RN notes reviewed, old records reviewed Mode of arrival: wheelchair Limitations: no limitations - History of Present Illness Initial comments: This is a 54-year-old female with a past medical history significant for smoking and high cholesterol. Patient also states she's on COPD and oxygen dependent. Patient also states she has a family history of it's very strong for cardiac disease. Patient comes in today because she has been having intermittent chest pain for a month and today it radiated down her arm and it made her more concerned. Patient states it lasted about 5 or so minutes. Patient states she is short of breath when it occurred but she still short of breath so difficult to assess whether is worse. Patient states anytime she gets up and walks she has worsening shortness of breath and occasionally chest pain. Patient denies any palpitations. Patient denies abdominal pain patient denies nausea vomiting diarrhea. Patient denies any recent fever chills or cough per patient denies lightheadedness dizziness or near syncopal episode. - Related Data Home Medications Medication Instructions Recorded Confirmed Albuterol Inhaler [Ventolin Hfa 2 puff INHALATION RT-Q6H PRN 11/12/19 11/12/19 Inhaler] Budesonide-Formot 160-4.5 Mcg 2 puff INHALATION RT-BID 11/12/19 11/12/19 [Symbicort 160-4.5 Mcg Inhaler] Diazepam 10 mg PO TID PRN 11/12/19 11/12/19 FLUoxetine HCL [PROzac] 20 mg PO HS 11/12/19 11/12/19 Nicotine 14Mg/24Hr Patch [Habitrol] 1 patch TRANSDERM DAILY 11/12/19 11/12/19 Pantoprazole [Protonix] 40 mg PO HS 11/12/19 11/12/19 lamoTRIgine 100 mg PO QAM 11/12/19 11/12/19 lamoTRIgine 200 mg PO HS 11/12/19 11/12/19 risperiDONE 3 mg PO 11/12/19 11/12/19 Previous Rx's Medication Instructions Recorded Doxycycline Monohydrate [Monodox] 100 mg PO BID 3 Days #6 cap 11/13/19 Ipratropium-Albuterol Nebulize 3 ml INHALATION RT-Q4H PRN ml 11/13/19 [Duoneb 0.5 mg-3 mg/3 ml Soln] Ipratropium-Albuterol Nebulize 3 ml INHALATION RT-QID ml 11/13/19 [Duoneb 0.5 mg-3 mg/3 ml Soln] predniSONE 10 mg PO DAILY #30 tab 11/13/19 Allergies Allergy/AdvReac Type Severity Reaction Status Date / Time codeine Allergy Rash/Hives Verified 12/28/19 15:40 nitroglycerin Allergy Swelling Verified 12/28/19 15:40 Review of Systems ROS Statement: Those systems with pertinent positive or pertinent negative responses have been documented in the HPI. ROS Other: All systems not noted in ROS Statement are negative. Past Medical History Past Medical History: COPD, Hyperlipidemia Additional Past Medical History / Comment(s): heart murmur History of Any Multi-Drug Resistant Organisms: None Reported Past Surgical History: Section, Hysterectomy, Tubal Ligation Past Psychological History: Bipolar Smoking Status: Current every day smoker Past Alcohol Use History: None Reported Past Drug Use History: None Reported - Past Family History Father Family Medical History: Coronary Artery Disease (CAD) Mother Family Medical History: Liver Disease General Exam - General Exam Comments Initial Comments: GENERAL: Patient is well-developed and well-nourished. Patient is nontoxic and well- hydrated and is in mild distress. ENT: Neck is soft and supple. No significant lymphadenopathy is noted. Oropharynx is clear. Moist mucous membranes. Neck has full range of motion without eliciting any pain. EYES: The sclera were anicteric and conjunctiva were pink and moist. Extraocular movements were intact and pupils were equal round and reactive to light. Eyelids were unremarkable. PULMONARY: Unlabored respirations. Good breath sounds bilaterally. Patient has diffuse wheezing CARDIOVASCULAR: There is a regular rate and rhythm without any murmurs gallops or rubs. ABDOMEN: Soft and nontender with normal bowel sounds. No palpable organomegaly was noted. There is no palpable pulsatile mass. SKIN: Skin is clear with no lesions or rashes and otherwise unremarkable. NEUROLOGIC: Patient is alert and oriented x3. Cranial nerves II through XII are grossly intact. Motor and sensory are also intact. Normal speech, volume and content. Symmetrical smile. MUSCULOSKELETAL: Normal extremities with adequate strength and full range of motion. LYMPHATICS: No significant lymphadenopathy is noted PSYCHIATRIC: Normal psychiatric evaluation. N Limitations: no limitations Course Vital Signs 12/28/19 12/28/19 12/28/19 15:37 15:55 16:01 Temperature 98.9 F Pulse Rate 108 H Pulse Rate [ 98 Pulse Oximetery ] Respiratory 20 18 Rate Blood Pressure 127/73 O2 Sat by Pulse 94 L Oximetry 12/28/19 16:03 Temperature 98.2 F Pulse Rate 97 Pulse Rate [ Pulse Oximetery ] Respiratory 18 Rate Blood Pressure 132/71 O2 Sat by Pulse 96 Oximetry Medical Decision Making - Medical Decision Making EKG shows sinus tachycardia 101 bpm [place] interval is on a 34 QRS is 78 QT interval 362 QTC is 4:30. Patient's EKG shows no ST segment elevation or depression. Patient was started on heparin. I spoke with Dr. Tai he agreed to admit the patient admitted the patient I wrote admitting orders I continued heparin and aspirin and Nitropaste on the floor. I also give the patient breathing treatments steroids emergency department for her wheezing. - Lab Data Result diagrams: 12/28/19 15:59 12/28/19 15:59 Lab Results 12/28/19 12/28/19 12/28/19 Range/Units 15:59 15:59 15:59 WBC 10.9 H (3.8-10.6) k/uL RBC 5.28 (3.80-5.40) m/uL Hgb 15.7 (11.4-16.0) gm/dL Hct 48.0 H (34.0-46.0) % MCV 90.9 (80.0-100.0) fL MCH 29.7 (25.0-35.0) pg MCHC 32.7 (31.0-37.0) g/dL RDW 13.2 (11.5-15.5) % Plt Count 224 (150-450) k/uL Neutrophils % 57 % Lymphocytes % 30 % Monocytes % 7 % Eosinophils % 3 % Basophils % 1 % Neutrophils # 6.2 (1.3-7.7) k/uL Lymphocytes # 3.3 (1.0-4.8) k/uL Monocytes # 0.8 (0-1.0) k/uL Eosinophils # 0.3 (0-0.7) k/uL Basophils # 0.1 (0-0.2) k/uL PT 10.6 (9.0-12.0) sec INR 1.0 (<1.2) APTT 26.2 (22.0-30.0) sec Sodium 136 L (137-145) mmol/L Potassium 4.1 (3.5-5.1) mmol/L Chloride 103 (98-107) mmol/L Carbon Dioxide 23 (22-30) mmol/L Anion Gap 10 mmol/L BUN 10 (7-17) mg/dL Creatinine 0.59 (0.52-1.04) mg/dL Est GFR (CKD-EPI)AfAm >90 (>60 ml/min/1.73 sqM) Est GFR (CKD-EPI)NonAf >90 (>60 ml/min/1.73 sqM) Glucose 131 H (74-99) mg/dL Calcium 9.8 (8.4-10.2) mg/dL Magnesium 2.0 (1.6-2.3) mg/dL Total Bilirubin 0.3 (0.2-1.3) mg/dL AST 28 (14-36) U/L ALT 23 (4-34) U/L Alkaline Phosphatase 99 (38-126) U/L Troponin I (0.000-0.034) ng/mL Total Protein 7.5 (6.3-8.2) g/dL Albumin 4.6 (3.5-5.0) g/dL 12/28/19 Range/Units 15:59 WBC (3.8-10.6) k/uL RBC (3.80-5.40) m/uL Hgb (11.4-16.0) gm/dL Hct (34.0-46.0) % MCV (80.0-100.0) fL MCH (25.0-35.0) pg MCHC (31.0-37.0) g/dL RDW (11.5-15.5) % Plt Count (150-450) k/uL Neutrophils % % Lymphocytes % % Monocytes % % Eosinophils % % Basophils % % Neutrophils # (1.3-7.7) k/uL Lymphocytes # (1.0-4.8) k/uL Monocytes # (0-1.0) k/uL Eosinophils # (0-0.7) k/uL Basophils # (0-0.2) k/uL PT (9.0-12.0) sec INR (<1.2) APTT (22.0-30.0) sec Sodium (137-145) mmol/L Potassium (3.5-5.1) mmol/L Chloride (98-107) mmol/L Carbon Dioxide (22-30) mmol/L Anion Gap mmol/L BUN (7-17) mg/dL Creatinine (0.52-1.04) mg/dL Est GFR (CKD-EPI)AfAm (>60 ml/min/1.73 sqM) Est GFR (CKD-EPI)NonAf (>60 ml/min/1.73 sqM) Glucose (74-99) mg/dL Calcium (8.4-10.2) mg/dL Magnesium (1.6-2.3) mg/dL Total Bilirubin (0.2-1.3) mg/dL AST (14-36) U/L ALT (4-34) U/L Alkaline Phosphatase (38-126) U/L Troponin I <0.012 (0.000-0.034) ng/mL Total Protein (6.3-8.2) g/dL Albumin (3.5-5.0) g/dL Critical Care Time Critical Care Time: Yes Total Critical Care Time: 35 Disposition Clinical Impression: Unstable angina pectoris, COPD exacerbation Disposition: ADMITTED IP TO THIS HOSP Referrals: Tim Chao MD [Primary Care Provider] - 1-2 days Time of Disposition: 17:28
[2019-12-28 16:17] LABS: Basophils # (A) 0.1 k/uL (0-0.2); Basophils % (A) 1 %; Eosinophils # (A) 0.3 k/uL (0-0.7); Eosinophils % (A) 3 %; HGB 15.7 gm/dL (11.4-16.0); Lymphocytes # (A) 3.3 k/uL (1.0-4.8); Lymphocytes % (A) 30 %; MCH 29.7 pg (25.0-35.0); MCHC 32.7 g/dL (31.0-37.0); MCV 90.9 fL (80.0-100.0); Monocytes # (A) 0.8 k/uL (0-1.0); Monocytes % (A) 7 %; Neutrophils # (A) 6.2 k/uL (1.3-7.7); Neutrophils % (A) 57 %; Platelet Count 224 k/uL (150-450); RBC 5.28 m/uL (3.80-5.40); RDW 13.2 % (11.5-15.5); WBC 10.9 k/uL (3.8-10.6)
[2019-12-28 16:28] LABS: ALT 23 U/L (4-34); AST 28 U/L (14-36); African American GFR (CKD) >90 (>60 ml/min/1.73 sqM); Albumin 4.6 g/dL (3.5-5.0); Alkaline Phosphatase 99 U/L (38-126); Anion Gap 10 mmol/L; Blood Urea Nitrogen 10 mg/dL (7-17); Calcium 9.8 mg/dL (8.4-10.2); Carbon Dioxide 23 mmol/L (22-30); Chloride 103 mmol/L (98-107); Glucose 131 mg/dL (74-99); Non-African American GFR(CKD) >90 (>60 ml/min/1.73 sqM); Potassium 4.1 mmol/L (3.5-5.1); Sodium 136 mmol/L (137-145); Total Bilirubin 0.3 mg/dL (0.2-1.3); Total Protein 7.5 g/dL (6.3-8.2)
[2019-12-28 16:30] LABS: Partial Thromboplastin Time 26.2 sec (22.0-30.0); Prothrombin Time 10.6 sec (9.0-12.0)
--- NOTE | 2019-12-28 17:01 | XR ---
EXAMINATION TYPE: XR chest 2V DATE OF EXAM: 12/28/2019 COMPARISON: 11/12/2019 HISTORY: Chest pain TECHNIQUE: 2 views FINDINGS: Heart is normal. There is some coarsening of interstitial pulmonary markings. There is no h eart failure. There are no hilar masses. Costophrenic angles are clear. There is some linear density over the heart on the lateral view there is probably some right middle lobe atelectasis. IMPRESSION: Increased interstitial markings compared to old exam. No heart failure seen. Minimal righ t middle lobe atelectasis.
[2019-12-28] MEDS ORDERED: IPRATROPIUM-ALBUTEROL 3 ML NEB INHALATION STA (17:04)
[2019-12-28] MEDS ORDERED: methylPREDNISolone SOD SUCCI 125 MG/2 ML VIAL IV STA (17:04)
[2019-12-28] MEDS ORDERED: HEPARIN SODIUM,PORCINE 5,000 UNIT/ML 1 ML VIAL IV ONE (17:28)
[2019-12-28] MEDS ORDERED: NITROGLYCERIN SL TABS 0.4 MG TAB SUBLINGUAL PRN (17:28)
[2019-12-28] MEDS ORDERED: HEPARIN SOD,PORK IN 0.45% NACL 25,000 UNIT in 0.45% NACL 1 250ML.BAG IV SCH (17:30)
[2019-12-28] MEDS ORDERED: NITROGLYCERIN OINT 1 INCH/GM PACKET TOPICAL SCH (18:00)
[2019-12-28 18:15] LABS: Glucose,Whole Blood 110 mg/dL (75-99)
[2019-12-28] MEDS: FLUoxetine HCL 20 MG CAP PO SCH ×2 (20:54)
[2019-12-28] MEDS: lamoTRIgine 100 MG TAB PO SCH (20:54)
[2019-12-28] MEDS: risperiDONE 1 MG TAB PO SCH (20:55)
[2019-12-28] MEDS: DIAZEPAM 5 MG TAB PO PRN (20:57)
[2019-12-28] MEDS ORDERED: ATORVASTATIN 20 MG TAB PO SCH (21:00)
[2019-12-28] MEDS ORDERED: IPRATROPIUM 0.5 MG/2.5 ML NEBU INHALATION SCH (21:00)
[2019-12-28] MEDS: IPRATROPIUM-ALBUTEROL 3 ML NEB INHALATION SCH (21:17)
[2019-12-28] MEDS ORDERED: HEPARIN SODIUM,PORCINE 5,000 UNIT/ML 1 ML VIAL IV PRN (22:31)
[2019-12-28] MEDS: methylPREDNISolone SOD SUCCI 125 MG/2 ML VIAL IV SCH (22:57)
[2019-12-29] MEDS: IPRATROPIUM-ALBUTEROL 3 ML NEB INHALATION SCH ×5 (05:04→19:40)
[2019-12-29 05:47] LABS: Glucose,Whole Blood 184 mg/dL (75-99)
[2019-12-29] MEDS: methylPREDNISolone SOD SUCCI 125 MG/2 ML VIAL IV SCH ×3 (05:47→18:38)
[2019-12-29 06:07] LABS: Cholesterol 217 mg/dL (<200); HDL Cholesterol 57 mg/dL (40-60); LDL Cholesterol,Calculated 111 mg/dL (0-99); Triglycerides 243 mg/dL (<150)
[2019-12-29] MEDS ORDERED: AMINOPHYLLINE 500 MG/20 ML VIAL IV PRN (08:32)
[2019-12-29] MEDS ORDERED: CAFFEINE CITRATE 60 MG/3 ML VIAL IV PRN (08:32)
[2019-12-29] MEDS ORDERED: REGADENOSON 0.4 MG/5 ML SYRINGE IV ONE (08:32)
[2019-12-29] MEDS ORDERED: ASPIRIN 81 MG PO SCH (09:00)
[2019-12-29] MEDS ORDERED: ASPIRIN 325 MG TAB PO SCH (09:00)
[2019-12-29] MEDS: INSULIN ASPART (NovoLOG) 100 UNIT/ML VIAL SQ SCH ×4 (09:44→22:31)
--- NOTE | 2019-12-29 11:13 | CONS ---
CONSULTATION Mrs. Rice is a 54-year-old female with history of chronic tobacco use, history of hyperlipidemia, who presented to the hospital with sharp chest discomfort. The patient has a known history of severe chronic obstructive lung disease on home oxygen. Her activity level is limited because of her dyspnea on exertion. She has no prior documented history of coronary artery disease. She according to her, had underwent a myocardial perfusion imaging a couple years ago that was unremarkable. She has no significant peripheral edema. No dizziness. No palpitation. No PND, orthopnea, or peripheral edema. The discomfort will last a few seconds. Because of that, she came into the emergency room and subsequently admitted. At time of at the time of my evaluation, she is pain free. She has been followed by Dr. Haider on a regular basis regarding her lung status. Her coronary risk factors are remarkable for the chronic tobacco use, history of hyperlipidemia. She is nondiabetic. MEDICATION: At home include Risperdal, lamotrigine, simvastatin 40 mg daily, Prozac, diazepam, Symbicort, and Ventolin. REVIEW OF SYSTEMS: RESPIRATORY SYSTEM: She had chronic obstructive lung disease, chronic dyspnea on exertion. The wheezing. GI SYSTEM: No recent GI bleeding, no peptic ulcer disease. SYSTEM: No dysuria or hematuria. NERVOUS SYSTEM: No stroke or seizure. PHYSICAL EXAMINATION: She is a 54-year-old female, alert, oriented, in no apparent distress. Blood pressure 137/60 with a heart rate in the 70s. HEAD: Normocephalic. EYES: Sclerae nonicteric. NECK: Good upstroke, no bruit, no jugular venous distention. LUNGS: Decreased air exchange with scattered wheezes bilaterally. HEART: Regular rate and rhythm, S1, S2. No S3 with systolic ejection murmur heard at the base. No diastolic murmur, no rub. ABDOMEN: Soft, nontender, positive bowel sounds. No organomegaly. Obese. EXTREMITIES: No edema, intact pulses. LAB DATA: Revealed a BUN and creatinine of 10 and 0.59, potassium 4.1,. troponin less than 0.012. Cholesterol of 217, LDL of 111. Hemoglobin of 15.7, white blood cell of 10.9. Chest x-ray revealed minimal right middle lobe atelectasis, increased interstitial marking. EKG revealed a sinus mechanism, rate of [address]-T wave changes. IMPRESSION: 1. Chest discomfort of unclear etiology, has atypical features of ischemic heart disease, probably noncardiac. 2. History of chronic tobacco use with severe chronic obstructive lung disease on home oxygen. 3. History of hyperlipidemia. 4. Obesity. RECOMMENDATION: I have recommend to stop the heparin. Proceed with a myocardial perfusion imaging as well as an echocardiogram to assess her status and guide her treatment. Depending on the results of testing, further recommendation will be made. Thank you for this consult. Will follow with you. SADIEL / IJN: [id number] /
--- NOTE | 2019-12-29 11:54 | ECHOF ---
Referral Reason:cp MEASUREMENTS -------- HEIGHT: 149.9 cm WEIGHT: 86.6 kg BP: 137/69 RVIDd: 3.0 cm (< 3.3) IVSd: 1.3 cm (0.6 - 1.1) LVIDd: 4.2 cm (3.9 - 5.3) LVPWd: 1.4 cm (0.6 - 1.1) IVSs: 1.9 cm LVIDs: 2.1 cm LVPWs: 1.5 cm LA Diam: 3.2 cm (2.7 - 3.8) LAESV Index (A-L): 16.50 ml/m Ao Diam: 2.9 cm (2.0 - 3.7) AV Cusp: 2.3 cm (1.5 - 2.6) MV EXCURSION: 10.090 mm (> 18.000) MV EF SLOPE: 118 mm/s (70 - 150) EPSS: 0.4 cm MV E Markie: 0.84 m/s MV DecT: 200 ms MV A Markie: 0.89 m/s MV E/A Ratio: 0.94 AR PHT: 790 ms FINDINGS -------- Sinus rhythm. This was a technically adequate study. The left ventricular size is normal. There is moderate concentric left ventricular hypertrophy. O verall left ventricular systolic function is normal with, an EF between 55 - 60 %. The right ventricle is normal in size. Normal LA size by volume 22+/-6 ml/m2. The right atrial size is normal. Interatrial and interventricular septum intact. The aortic valve is trileaflet and appears structurally normal. There is mild aortic regurgitation. The mitral valve is normal. Mild mitral regurgitation is present. The tricuspid valve appears structurally normal. The pulmonic valve was not well visualized. There is no pulmonic regurgitation present. The aortic root size is normal. IVC Not well visulized. There is no pericardial effusion. CONCLUSIONS -------- 1. There is moderate concentric left ventricular hypertrophy. 2. Overall left ventricular systolic function is normal with, an EF between 55 - 60 %. 3. Normal LA size by volume 22+/-6 ml/m2. 4. There is mild aortic regurgitation. 5. Mild mitral regurgitation is present. 6. There is no pericardial effusion. [employer]ODUCTION INTERNSHIP: YUDITH Cabrera
--- NOTE | 2019-12-29 11:56 | P.CNPUL ---
History of Present Illness Consult date: 12/29/19 Reason for consult: chest pain, COPD History of present illness: 54-year-old female patient known history of COPD, oxygen dependent who came in t o [facility] because of some increased chest wall pain not related to breathing or exertion. The pain is rather constant with intermittent exacerbation of the severity of the pain. There is a vague history of radiation of the pain to the arm although the patient is denying it this morning. This lasted approximately her on 5 minutes. She has increased cough and congestion and chest tightness and wheezing consistent with an underlying COPD exacerbation. She was hospitalized for COPD exacerbation back in 11/13/2019. The patient smokes one and a half pack of cigarettes a daily basis. She utilize oxygen at 2 L per minute nasal cannula. During the last auscultation, the patient had a computed tomography scan of the chest that was consistent with COPD and was negative for pulmonary embolism and there was chronic appearing groundglass infiltrates without any airspace disease and the right middle lobe linear atelectasis. Scattered subpleural pulmonary fibrosis was also noted. Her pulmonary function test shows a combination of obstruction and restriction. FEV1 is noted of 52% of predicted. Diffusion capacity is 60% of predicted and the total lung capacity is at 72% of predicted. White cell count is at 10.9. Patient is currently on IV heparin. Stress test still pending for now. 3 sets of troponins have been negative.: COVID 19 evaluation was negative. Review of Systems Constitutional: Reports weight gain Eyes: denies as per HPI, denies blurred vision, denies bulging eye, denies decreased vision, denies diplopia, denies discharge, denies dry eye, denies irritation, denies itching, denies pain, denies photophobia, denies loss of peripheral vision, denies loss of vision, denies tunnel vision/blind spots Ears: deny: decreased hearing, ear discharge, earache, tinnitus Ears, nose, mouth and throat: Reports as per HPI Breasts: absent: as per HPI, change in shape, gynecomastia, masses, nipple discharge, pain, skin changes, swelling Cardiovascular: Reports chest pain, Reports decreased exercise tolerance, Reports dyspnea on exertion, Reports shortness of breath Respiratory: Reports dyspnea, Reports wheezing Gastrointestinal: Reports as per HPI Genitourinary: Reports as per HPI Menstruation: Reports as per HPI Musculoskeletal: Reports as per HPI Musculoskeletal: absent: ankle pain, ankle stiffness, ankle swelling Integumentary: Reports as per HPI Neurological: Reports as per HPI Psychiatric: Reports as per HPI Endocrine: Reports as per HPI, Reports fatigue Hematologic/Lymphatic: Reports easy bleeding Past Medical History Past Medical History: COPD, Hyperlipidemia Additional Past Medical History / Comment(s): Obesity, hyperlipidemia History of Any Multi-Drug Resistant Organisms: None Reported Past Surgical History: Section, Hysterectomy, Tubal Ligation Past Anesthesia/Blood Transfusion Reactions: No Reported Reaction Past Psychological History: Bipolar Smoking Status: Current every day smoker Past Alcohol Use History: None Reported Past Drug Use History: None Reported - Past Family History Father Family Medical History: Coronary Artery Disease (CAD) Mother Family Medical History: Liver Disease Medications and Allergies Home Medications Medication Instructions Recorded Confirmed Type Albuterol Inhaler [Ventolin Hfa 2 puff INHALATION RT-Q6H PRN 11/12/19 12/28/19 History Inhaler] Budesonide-Formot 160-4.5 Mcg 2 puff INHALATION RT-BID 11/12/19 12/28/19 History [Symbicort 160-4.5 Mcg Inhaler] Diazepam 10 mg PO TID PRN 11/12/19 12/28/19 History FLUoxetine HCL [PROzac] 20 mg PO HS 11/12/19 12/28/19 History lamoTRIgine 100 mg PO DAILY 11/12/19 12/28/19 History lamoTRIgine 200 mg PO HS 11/12/19 12/28/19 History risperiDONE 3 mg PO HS 11/12/19 12/28/19 History FLUoxetine HCL [PROzac] 40 mg PO HS 12/28/19 12/28/19 History Simvastatin [Zocor] 40 mg PO HS 12/28/19 12/28/19 History risperiDONE [RisperDAL] 1 mg PO DAILY 12/28/19 12/28/19 History Allergies Allergy/AdvReac Type Severity Reaction Status Date / Time codeine Allergy Rash/Hives Verified 12/28/19 19:51 nitroglycerin Allergy Anaphylaxis Verified 12/28/19 19:51 Physical Exam Vitals: Vital Signs Temp Pulse Pulse Resp BP BP Pulse Ox 12/29/19 08:00 97.9 F 98 20 140/78 93 L 12/29/19 07:52 92 12/29/19 07:42 88 12/29/19 05:15 91 12/29/19 04:00 97.7 F 72 20 137/69 94 L 12/29/19 00:00 97.8 F 86 18 105/67 92 L 12/28/19 19:34 97.9 F 91 18 140/78 93 L 12/28/19 19:14 98.5 F 88 16 137/80 95 12/28/19 18:15 98.4 F 86 18 110/91 95 12/28/19 17:44 91 12/28/19 17:35 91 12/28/19 17:30 90 18 129/81 98 12/28/19 17:00 94 16 132/71 96 12/28/19 16:03 98.2 F 97 18 132/71 96 12/28/19 16:01 18 12/28/19 16:00 96 12/28/19 15:59 96 12/28/19 15:55 98 12/28/19 15:37 98.9 F 108 H 20 127/73 94 L Intake and Output 12/28/19 12/29/19 12/29/19 22:59 06:59 14:59 Other: Voiding Method Toilet Toilet # Voids 1 Weight 86.636 kg 86.64 kg Obese, comfortable likely distress Head exam was generally normal. There was no scleral icterus or corneal arcus. Mucous membranes were moist. Neck was supple and without jugular venous distension, thyromegaly, or carotid bruits. Carotids were easily palpable bilaterally. There was no adenopathy. The patient is a Mallampati class IV with significant crowding of the posterior oropharynx Lungs sounds are diminished and the patient is scattered expiratory wheezes throughout the lung his bilaterally along with prolongation of the exhalation phase of breathing. Cardiac exam revealed the PMI to be normally situated and sized. The rhythm was regular and no extrasystoles were noted during several minutes of auscultation. The first and second heart sounds were normal and physiologic splitting of the second heart sound was noted. There were no murmurs, rubs, clicks, or gallops. Abdominal exam revealed normal bowel sounds. The abdomen was soft, non-tender, and without masses, organomegaly, or appreciable enlargement of the abdominal Examination of the extremities revealed easily palpable radial, femoral and pedal pulses. There was no cyanosis, clubbing or edema. Examination of the skin revealed no evidence of significant rashes, suspicious appearing nevi or other concerning lesions. Neurologically awake and alert and there is no focal neurological deficits. Results - Laboratory Findings CBC and BMP: 12/28/19 15:59 12/28/19 15:59 PT/INR, D-dimer PT 10.6 sec (9.0-12.0) 12/28/19 15:59 INR 1.0 (<1.2) 12/28/19 15:59 Abnormal lab findings: Abnormal Labs 12/28/19 12/28/19 12/28/19 15:59 15:59 18:13 WBC 10.9 H Hct 48.0 H APTT Sodium 136 L Glucose 131 H POC Glucose (mg/dL) 110 H Triglycerides Cholesterol LDL Cholesterol, Calc 12/29/19 12/29/19 12/29/19 01:39 01:39 05:45 WBC Hct APTT 45.6 H Sodium Glucose POC Glucose (mg/dL) 184 H Triglycerides 243 H Cholesterol 217 H LDL Cholesterol, Calc 111 H - Diagnostic Findings Chest x-ray: image reviewed Assessment and Plan Plan: 1 chest wall pain, atypical, under investigation. The patient is going to undergo a cardiac stress test. The pain is probably related to her long history of COPD 2 COPD exacerbation with secondary shortness of breath 3 chronic dyspnea, multifactorial 4 limited fibrosis and lung bases bilaterally, consistent underlying ILD secondary to chronic smoking 5 hyperlipidemia 6 obesity with a BMI of 38.6 7 smoker 8 bipolar disorder Plan Continue IV heparin Cardiac stress test, low suspicion for underlying CAD or an acute cardiac event Continue bronchodilators Continue systemic steroids Smoking cessation counseling Weight-loss Resume all medication will continue to follow
--- NOTE | 2019-12-29 12:21 | NM ---
EXAMINATION TYPE: NM stress lexiscan cardiolite DATE OF EXAM: 12/29/2019 COMPARISON: NONE HISTORY: Precordial chest pain and EKG TECHNIQUE: After the intravenous administration of 9.7 mCi Tc 99m Sestamibi - Cardiolite resting SPE CT images acquired 75 minutes post injection. The patient received 0.4mg Lexiscan, 24.2 mCi Tc 99m Sestamibi - Stress images obtained [address] injection FINDINGS: Review of stress and rest SPECT images demonstrates reversible decreased perfusion involving the ante rior no lateral and lateral jaime felt to reflect small areas of stress-induced ischemia. Correlate c linically. No fixed defects seen. Gated analysis shows normal wall motion with an estimated left vent ricular ejection fraction of 67 %. IMPRESSION: Correlate for stress-induced ischemia as noted above.
[2019-12-29] MEDS: DIAZEPAM 5 MG TAB PO PRN ×2 (13:03→18:37)
[2019-12-29] MEDS: lamoTRIgine 100 MG TAB PO SCH ×2 (13:05→22:43)
[2019-12-29] MEDS: risperiDONE 1 MG TAB PO SCH ×2 (13:06→22:30)
[2019-12-29 13:13] LABS: Glucose,Whole Blood 212 mg/dL (75-99)
--- NOTE | 2019-12-29 13:31 | P.PN ---
Progress Note - Text Abnormal stress test results discussed with the patient. Recommendation to proceed with cardiac catheterization for definitive diagnosis. I have discussed the risks, benefits and alternative therapies for the above-mentioned procedure and for both sedation/analgesia as well as necessary blood product administration, if indicated, as they pertain to this patient. The patient has indicated understanding and acceptance of the risks and procedures discussed. Questions have been answered appropriately and she is agreeable to move forward with the above stated procedure. Case has been boarded for tomorrow with Dr. Mcclure. She will be NPO after midnight.
[2019-12-29] MEDS ORDERED: SODIUM CHLORIDE 0.9% 1,000 ML in EMPTY BAG 1 BAG IV ONE (13:32)
--- NOTE | 2019-12-29 13:48 | EST ---
EXERCISE STRESS AGE: 54 SEX: F HT: 4'11" WT: 191 (87 kg) PROTOCOL: Lexiscan Cardiolite STAGE: DURATION OF EXERCISE: HEART RATE REST: 105 BLOOD PRESSURE REST: 153/72 MAXIMUM HEART RATE ACHIEVED: 126 MAXIMUM BLOOD PRESSURE: 121/67 85% MPHR: 140 100% MPHR: 165 METS: INDICATIONS: CLINICAL INFORMATION: Baseline rhythm is a sinus mechanism, rate of 105, normal axis and intervals, nonspecific ST-T wave changes. Baseline blood pressure 153/72 mmHg. Patient received an injection of Lexiscan. Electrocardiograph monitoring revealed a [address]-segment depression in the inferolateral leads. Cardiolite was injected per protocol. CONCLUSION: 1. Borderline positive electrocardiograph changes with Lexiscan infusion. 2. Nuclear images will be reported separately. MMODL / IJN: [id number] /
[2019-12-29 17:17] LABS: Glucose,Whole Blood 189 mg/dL (75-99)
[2019-12-29 21:43] LABS: Glucose,Whole Blood 209 mg/dL (75-99)
[2019-12-29] MEDS: FLUoxetine HCL 20 MG CAP PO SCH ×2 (21:58→22:28)
[2019-12-29] MEDS: ATORVASTATIN 40 MG TAB PO SCH (22:29)
--- NOTE | 2019-12-29 23:25 | P.HPIM ---
History of Present Illness H&P Date: 12/29/19 Chief Complaint: Chest Pain Patient is a 54-year-old female with a known history of COPD on home oxygen, hypoglycemia, hyperlipidemia, bipolar disorder and everyday smoker came to ER with the complaints of chest pain mainly retrosternal squeezing type with radiation to the left arm and to the collarbone. Patient states that she has been having on and off chest pains for the past 1 month month lasting about few seconds but did not stay this long. Patient had chest pain yesterday lasted about 5 minutes associated with shortness of breath and increased in severity compared to her chest pains prior., Which made her to come to ER. Patient otherwise denied any complaints of nausea vomiting or diaphoresis. No palpitations. No headache or dizziness or lightheadedness. No nausea vomiting or diarrhea no abdominal pain. No fever no chills. Patient does have cough without oxygen sputum production. No recent illnesses or sick contacts. EKG showed sinus tachycardia Chest x-ray showed increased interstitial markings compared to old exam. No heart failure seen. Minimal right middle lobe atelectasis. Laboratory data showed WBC 10.9, hemoglobin 15.7, sodium 136, potassium 4.1, BUN 10 and creatinine 0.59 liver enzymes are not elevated troponin x2- Coronavirus negative. Review of Systems Constitutional: Patient denies any fever or chills . No generalized weakness or weight loss. Abdomen: Patient denied nausea vomiting and diarrhea and abdominal pain. Cardiovascular: Patient does have chest pain and short of breath no palpitations. Respiratory: patient denied any cough or production. + shortness of breath Neurologic: Patient denied any numbness or tingling headache. Musculoskeletal: Patient denies any complaints of joint swelling or deformity. Skin: Negative Psychiatric: Negative Endocrine: No heat or cold intolerance. No recent weight gain. Genitourinary: No dysuria or hematuria. All other 14 point ROS negative except the above Past Medical History Past Medical History: COPD, Hyperlipidemia Additional Past Medical History / Comment(s): heart murmur, hypoglycemia History of Any Multi-Drug Resistant Organisms: None Reported Past Surgical History: Section, Hysterectomy, Tubal Ligation Past Anesthesia/Blood Transfusion Reactions: No Reported Reaction Past Psychological History: Bipolar Smoking Status: Current every day smoker Past Alcohol Use History: None Reported Past Drug Use History: None Reported - Past Family History Father Family Medical History: Coronary Artery Disease (CAD) Mother Family Medical History: Liver Disease Medications and Allergies Home Medications Medication Instructions Recorded Confirmed Type Albuterol Inhaler [Ventolin Hfa 2 puff INHALATION RT-Q6H PRN 11/12/19 12/28/19 History Inhaler] Budesonide-Formot 160-4.5 Mcg 2 puff INHALATION RT-BID 11/12/19 12/28/19 History [Symbicort 160-4.5 Mcg Inhaler] Diazepam 10 mg PO TID PRN 11/12/19 12/28/19 History FLUoxetine HCL [PROzac] 20 mg PO HS 11/12/19 12/28/19 History lamoTRIgine 100 mg PO DAILY 11/12/19 12/28/19 History lamoTRIgine 200 mg PO HS 11/12/19 12/28/19 History risperiDONE 3 mg PO HS 11/12/19 12/28/19 History FLUoxetine HCL [PROzac] 40 mg PO HS 12/28/19 12/28/19 History Simvastatin [Zocor] 40 mg PO HS 12/28/19 12/28/19 History risperiDONE [RisperDAL] 1 mg PO DAILY 12/28/19 12/28/19 History Allergies Allergy/AdvReac Type Severity Reaction Status Date / Time codeine Allergy Rash/Hives Verified 12/28/19 19:51 nitroglycerin Allergy Anaphylaxis Verified 12/28/19 19:51 Physical Exam Vitals: Vital Signs Temp Pulse Pulse Resp BP BP Pulse Ox 12/29/19 08:00 97.9 F 98 20 140/78 93 L 12/29/19 07:52 92 12/29/19 07:42 88 12/29/19 05:15 91 12/29/19 04:00 97.7 F 72 20 137/69 94 L 12/29/19 00:00 97.8 F 86 18 105/67 92 L 12/28/19 19:34 97.9 F 91 18 140/78 93 L 12/28/19 19:14 98.5 F 88 16 137/80 95 12/28/19 18:15 98.4 F 86 18 110/91 95 12/28/19 17:44 91 12/28/19 17:35 91 12/28/19 17:30 90 18 129/81 98 12/28/19 17:00 94 16 132/71 96 07/12/20 16:03 98.2 F 97 18 132/71 96 12/28/19 16:01 18 12/28/19 16:00 96 12/28/19 15:59 96 12/28/19 15:55 98 12/28/19 15:37 98.9 F 108 H 20 127/73 94 L Intake and Output 12/28/19 12/29/19 12/29/19 22:59 06:59 14:59 Other: Voiding Method Toilet Toilet # Voids 1 Weight 86.636 kg PHYSICAL EXAMINATION: Patient is lying in the bed comfortably, no acute distress, awake alert and oriented.. HEENT: Normocephalic. Neck is supple. Pupils reactive. Nostrils clear. Oral cavity is moist. Ears reveal no drainage. Neck reveals no JVD, carotid bruits, or thyromegaly. CHEST EXAMINATION: Trachea is central. Symmetrical expansion.Bilateral wheezing and scattered rhonchi and basilar crackles. . CARDIAC: Normal S1, S2 with no gallops. No murmurs ABDOMEN: Soft. Bowel sounds normal. No organomegaly. No abdominal bruits. Extremities: reveal no edema. No clubbing or cyanosis Neurologically awake, alert, oriented x3 with well-coordinated movements. No focal deficits noted Skin: No rash or skin lesions. Psychiatric: Coperative. Nonsuicidal Musculoskeletal: No joint swelling or deformity. Normal range of motion. Results CBC & Chem 7: 12/28/19 15:59 12/28/19 15:59 Labs: Abnormal Lab Results - Last 24 Hours (Table) 12/28/19 12/28/19 12/28/19 Range/Units 15:59 15:59 18:13 WBC 10.9 H (3.8-10.6) k/uL Hct 48.0 H (34.0-46.0) % APTT (22.0-30.0) sec Sodium 136 L (137-145) mmol/L Glucose 131 H (74-99) mg/dL POC Glucose (mg/dL) 110 H (75-99) mg/dL Triglycerides (<150) mg/dL Cholesterol (<200) mg/dL LDL Cholesterol, Calc (0-99) mg/dL 12/29/19 12/29/19 12/29/19 Range/Units 01:39 01:39 05:45 WBC (3.8-10.6) k/uL Hct (34.0-46.0) % APTT 45.6 H (22.0-30.0) sec Sodium (137-145) mmol/L Glucose (74-99) mg/dL POC Glucose (mg/dL) 184 H (75-99) mg/dL Triglycerides 243 H (<150) mg/dL Cholesterol 217 H (<200) mg/dL LDL Cholesterol, Calc 111 H (0-99) mg/dL Thrombosis Risk Factor Assmnt - DVT/VTE Prophylaxis DVT/VTE Prophylaxis: Pharmacologic Prophylaxis ordered - Choose All That Apply Any of the Below Risk Factors Present?: Yes Each Factor Represents 1 point: Abnormal pulmonary function (COPD), Age 41-60 years, Obesity (BMI >25) Other Risk Factors: No Other congenital or acquired thrombophilia - If yes, enter type in comment: No Thrombosis Risk Factor Assessment Total Risk Factor Score: 3 Thrombosis Risk Factor Assessment Level: Moderate Risk Assessment and Plan Assessment: Chest pain possible unstable angina. Acute COPD exacerbation Chronic hypoxic respiratory failure on home oxygen due to COPD Family history of significant coronary artery disease Ongoing nicotine addiction Hyperlipidemia Obesity with a BMI 38.6 Bipolar disorder DVT prophylaxis Plan: Patient will be continued on telemetry monitoring. Serial troponin x2-. Patient was started on heparin drip and cardiology was consulted. Plan for stress test today. Patient will be continued IV steroids, breathing treatments and continue with oxygen therapy. Continue with aspirin statins and follow-up closely. Cardiology and pulmonary is on board. Further recommendations based on the clinical course. Smoking cessation has been counseled extensively. Time with Patient: Greater than 30
[2019-12-30] MEDS: methylPREDNISolone SOD SUCCI 125 MG/2 ML VIAL IV SCH ×5 (00:39→23:27)
[2019-12-30] MEDS ORDERED: SODIUM CHLORIDE 0.9% 1,000 ML in EMPTY BAG 1 BAG IV ONE (06:00)
[2019-12-30] MEDS ORDERED: ASPIRIN 81 MG PO ONE (06:00)
[2019-12-30 06:56] LABS: Glucose,Whole Blood 156 mg/dL (75-99)
[2019-12-30] MEDS: IPRATROPIUM-ALBUTEROL 3 ML NEB INHALATION SCH ×4 (07:36→19:59)
[2019-12-30] MEDS: INSULIN ASPART (NovoLOG) 100 UNIT/ML VIAL SQ SCH ×4 (08:17→21:15)
[2019-12-30] MEDS: risperiDONE 1 MG TAB PO SCH ×2 (08:24→21:14)
[2019-12-30] MEDS: lamoTRIgine 100 MG TAB PO SCH ×2 (08:39→21:14)
[2019-12-30 11:54] LABS: Glucose,Whole Blood 142 mg/dL (75-99)
--- NOTE | 2019-12-30 12:46 | P.PN ---
Subjective Progress Note Date: 12/30/19 On 12/30/2019 the patient is being seen for a follow-up. She is currently being treated for an acute COPD exacerbation. Note that she had also chest wall pain that was atypical in nature. Nevertheless, the stress test came back positive and the patient is being considered for a cardiac catheterization. She is less bronchospastic and wheezy and she is going to the combination of bronchodilators and steroids. As reported, there is no chest pain. The patient is free of any angina. No nausea. No vomiting. No diarrhea. No fever. No chills. No other complaints otherwise for now. She is afebrile with a temperature 98.0. She is hemodynamically stable with a pulse ox above 90% on room air oxygen. Objective - Vital Signs Vital signs: Vital Signs Temp 98.0 F 12/30/19 12:00 Pulse 99 12/30/19 12:00 Resp 16 12/30/19 12:00 BP 138/83 12/30/19 12:00 Pulse Ox 91 L 12/30/19 08:00 Intake & Output 12/29/19 12/30/19 12/30/19 18:59 06:59 18:59 Intake Total 560 0 Balance 560 0 Weight 86.64 kg Intake: Intake, IV Titration 0 Amount Sodium Chloride 0.9% 1, 0 000 ml In Empty Bag 1 bag @ 1 ML/KG/HR 86.64 mls/ hr IV .[id number] ONE Rx#: [id number] Oral 560 Other: Voiding Method Toilet # Voids 3 1 1 - Exam Obese, comfortable likely distress Head exam was generally normal. There was no scleral icterus or corneal arcus. Mucous membranes were moist. Neck was supple and without jugular venous distension, thyromegaly, or carotid bruits. Carotids were easily palpable bilaterally. There was no adenopathy. The patient is a Mallampati class IV with significant crowding of the posterior o ropharynx Lungs sounds are diminished and the patient is scattered expiratory wheezes throughout the lung his bilaterally along with prolongation of the exhalation phase of breathing. Cardiac exam revealed the PMI to be normally situated and sized. The rhythm was regular and no extrasystoles were noted during several minutes of auscultation. The first and second heart sounds were normal and physiologic splitting of the second heart sound was noted. There were no murmurs, rubs, clicks, or gallops. Abdominal exam revealed normal bowel sounds. The abdomen was soft, non-tender, and without masses, organomegaly, or appreciable enlargement of the abdominal Examination of the extremities revealed easily palpable radial, femoral and pedal pulses. There was no cyanosis, clubbing or edema. Examination of the skin revealed no evidence of significant rashes, suspicious appearing nevi or other concerning lesions. Neurologically awake and alert and there is no focal neurological deficits. - Labs CBC & Chem 7: 12/28/19 15:59 12/28/19 15:59 Labs: Abnormal Lab Results - Last 24 Hours (Table) 12/29/19 12/29/19 12/29/19 Range/Units 13:10 17:14 21:42 POC Glucose (mg/dL) 212 H 189 H 209 H (75-99) mg/dL 12/30/19 12/30/19 Range/Units 06:54 11:53 POC Glucose (mg/dL) 156 H 142 H (75-99) mg/dL Assessment and Plan Plan: 1 chest wall pain, atypical, under investigation. The patient underwent a cardiac stress test that came back positive for reversible ischemia and for now the plan is to proceed with a cardiac catheterization. 2 COPD exacerbation with secondary shortness of breath, improving and the patient is a smoker spastic and wheezy 3 chronic dyspnea, multifactorial, improving , 4 limited fibrosis and lung bases bilaterally, consistent underlying ILD secondary to chronic smoking 5 hyperlipidemia 6 obesity with a BMI of 38.6 7 smoker 8 bipolar disorder Plan Based on the results of the positive stress test, cardiac catheterization is b kellee continued Undercutter on the case regarding the cardiac cath. The procedure was expected to the patient length. This will be done tomorrow. Continue bronchodilators Continue systemic steroids Smoking cessation counseling Weight-loss Resume all medication will continue to follow
--- NOTE | 2019-12-30 13:33 | P.PN ---
Subjective This is a pleasant 54-year-old female past medical history significant for dyslipidemia, COPD on home oxygen and chronic nicotine dependence. She underwent a Lexiscan stress test yesterday that revealed evidence of reversibility. She is scheduled to undergo cardiac catheterization today. She is seen and examined sitting up in no acute distress. She describes intermittent episodes of ongoing chest discomfort not related to activity or exertion. Blood pressure 138/83, heart rate 86 afebrile and maintaining oxygen saturation on room air. Echocardiogram reveals preserved LV systolic function with ejection fraction 55-60%, mild aortic regurgitation and mild mitral regurgitation. Currently maintained on aspirin 81 mg daily and atorvastatin 40 mg at bedtime. GENERAL: Well-appearing, well-nourished and in no acute distress. NECK: Supple without JVD or thyromegaly. LUNGS: Expiratory wheezes, diminished bilaterally. No rales or rhonchi. Respiration equal and unlabored. HEART: Regular rate and rhythm with systolic ejection murmur at the base, no rubs or gallops. S1 and S2 heard. EXTREMITIES: Normal range of motion, no edema. No clubbing or cyanosis. Peripheral pulses intact. ASSESSMENT Chest pain, atypical. An acute coronary event has been ruled out. Abnormal Lexiscan stress test. He COPD on home oxygen Dyslipidemia Obesity, BMI 38 PLAN Case has been rescheduled to tomorrow at 0730. NPO after midnight tonight. Nurse Practitioner note has been reviewed, I agree with a documented findings and plan of care. Patient was seen and examined. Objective - Vital Signs Vital signs: Vital Signs Temp 98.0 F 12/30/19 12:00 Pulse 99 12/30/19 12:00 Resp 16 12/30/19 12:00 BP 138/83 12/30/19 12:00 Pulse Ox 91 L 12/30/19 08:00 Intake & Output 12/29/19 12/30/19 12/30/19 18:59 06:59 18:59 Intake Total 560 0 Balance 560 0 Weight 86.64 kg Intake: Intake, IV Titration 0 Amount Sodium Chloride 0.9% 1, 0 000 ml In Empty Bag 1 bag @ 1 ML/KG/HR 86.64 mls/ hr IV .[id number] ONE Rx#: [id number] Oral 560 Other: Voiding Method Toilet # Voids 3 1 1 - Labs CBC & Chem 7: 12/28/19 15:59 07/12/20 15:59 Labs: Abnormal Lab Results - Last 24 Hours (Table) 12/29/19 12/29/19 12/29/19 Range/Units 13:10 17:14 21:42 POC Glucose (mg/dL) 212 H 189 H 209 H (75-99) mg/dL 12/30/19 12/30/19 Range/Units 06:54 11:53 POC Glucose (mg/dL) 156 H 142 H (75-99) mg/dL
[2019-12-30] MEDS: DIAZEPAM 5 MG TAB PO PRN ×2 (13:53→21:14)
[2019-12-30 17:02] LABS: Glucose,Whole Blood 151 mg/dL (75-99)
[2019-12-30 20:51] LABS: Glucose,Whole Blood 251 mg/dL (75-99)
[2019-12-30] MEDS: ATORVASTATIN 40 MG TAB PO SCH (21:12)
[2019-12-30] MEDS: FLUoxetine HCL 20 MG CAP PO SCH ×2 (21:14→21:15)
[2019-12-31 01:47] LABS: Glucose,Whole Blood 200 mg/dL (75-99)
[2019-12-31 02:33] VITALS: RESP 18
[2019-12-31] MEDS: methylPREDNISolone SOD SUCCI 125 MG/2 ML VIAL IV SCH (05:41)
[2019-12-31] MEDS ORDERED: ASPIRIN 81 MG PO ONE (06:00)
[2019-12-31 06:03] LABS: Basophils % (A) 0 %; Eosinophils # (A) 0.1 k/uL (0-0.7); Eosinophils % (A) 0 %; HGB 13.9 gm/dL (11.4-16.0); Lymphocytes # (A) 1.8 k/uL (1.0-4.8); Lymphocytes % (A) 11 %; MCH 29.6 pg (25.0-35.0); MCHC 32.4 g/dL (31.0-37.0); MCV 91.5 fL (80.0-100.0); Mean Platelet Volume 9.2; Monocytes # (A) 0.7 k/uL (0-1.0); Monocytes % (A) 4 %; Neutrophils # (A) 14.2 k/uL (1.3-7.7); Neutrophils % (A) 84 %; Platelet Count 185 k/uL (150-450); RBC 4.69 m/uL (3.80-5.40); RDW 13.3 % (11.5-15.5); WBC 16.9 k/uL (3.8-10.6)
[2019-12-31 06:12] LABS: African American GFR (CKD) >90 (>60 ml/min/1.73 sqM); Anion Gap 4 mmol/L; Blood Urea Nitrogen 14 mg/dL (7-17); Calcium 8.8 mg/dL (8.4-10.2); Carbon Dioxide 29 mmol/L (22-30); Chloride 107 mmol/L (98-107); Glucose 148 mg/dL (74-99); Magnesium 2.3 mg/dL (1.6-2.3); Non-African American GFR(CKD) >90 (>60 ml/min/1.73 sqM); Potassium 4.5 mmol/L (3.5-5.1); Sodium 140 mmol/L (137-145)
[2019-12-31 06:56] LABS: Glucose,Whole Blood 143 mg/dL (75-99)
[2019-12-31] MEDS ORDERED: VERAPAMIL 2.5 MG/ML 2 ML AMP ONE (07:12)
[2019-12-31] MEDS ORDERED: HEPARIN SODIUM 1,000 UN/ML (10ML VL) ONE (07:12)
[2019-12-31] MEDS ORDERED: fentaNYL (PF) 50 MCG/ML 2 ML AMP ONE (07:12)
[2019-12-31] MEDS ORDERED: LIDOCAINE 1% INJ 10MG/ML (20 ML MDV) ONE (07:12)
[2019-12-31] MEDS: IPRATROPIUM-ALBUTEROL 3 ML NEB INHALATION SCH ×2 (07:30→11:01)
[2019-12-31] MEDS ORDERED: fentaNYL (PF) 50 MCG/ML 2 ML AMP IVP ONE (08:13)
[2019-12-31] MEDS ORDERED: LIDOCAINE 1% INJ 10MG/ML (20 ML MDV) SQ ONE (08:17)
[2019-12-31] MEDS ORDERED: VERAPAMIL SYRINGE (5 MG/10 ML) INTRAARTER ONE (08:20)
[2019-12-31] MEDS ORDERED: HEPARIN SODIUM 1,000 UN/ML (10ML VL) IV ONE (08:25)
[2019-12-31] MEDS: INSULIN ASPART (NovoLOG) 100 UNIT/ML VIAL SQ SCH ×2 (08:32→12:01)
[2019-12-31] MEDS ORDERED: IOPAMIDOL-370 100ML BTL INJ ONE (08:33)
[2019-12-31] MEDS ORDERED: SODIUM CHLORIDE 0.9% 1,000 ML IV ONE (08:34)
[2019-12-31] MEDS ORDERED: RX INFO: IV CONTRAST WAS GIVEN 1 EACH MISC MISCELLANE PRN (08:43)
[2019-12-31] MEDS ORDERED: SODIUM CHLORIDE 0.9% 1,000 ML IV SCH (08:45)
[2019-12-31] MEDS ORDERED: MIDAZOLAM ORAL SYRUP 10 MG/5 ML CUP PO ONE (09:00)
[2019-12-31] MEDS ORDERED: ASPIRIN 81 MG PO SCH (09:00)
[2019-12-31] MEDS: DIAZEPAM 5 MG TAB PO PRN (09:29)
[2019-12-31] MEDS: lamoTRIgine 100 MG TAB PO SCH (09:30)
--- NOTE | 2019-12-31 09:45 | CC ---
CARDIAC CATHETERIZATION REPORT Mrs. Rice is a 54-year-old female with known history of chronic obstructive lung disease, who presented with symptoms of chest discomfort and progressive dyspnea on exertion. Her cardiac enzymes were unremarkable, underwent a myocardial perfusion imaging that revealed evidence of inducible ischemia. In view of that, recommendation made regarding cardiac catheterization. The procedures, risks, and complication were discussed with the patient who is in full understanding and agreement. PROCEDURE: Patient was brought to the lab coordinator in a fasting semi-sedated state after receiving fentanyl and Benadryl and achieving moderate conscious sedated state. Using Xylocaine anesthesia and Seldinger technique, a 6-Beninese sheath was introduced in the right radial artery. Selective right and left coronary angiography performed using 5-Beninese 3.5 bend right and left Ally catheter, multiple views of the coronary artery including hemiaxial views were obtained. Following that, the left Ally was used to cross the aortic valve and pressures were calculated. Following that, catheter and sheath were removed. Hemostasis was obtained with deployment of a TR band. There was no immediate complication. Patient was returned to her room in stable condition. Of note, the patient received 5000 units of intravenous heparin as well as intra-arterial verapamil. FINDINGS: LEFT MAIN: This is a short size vessel, bifurcating into left circumflex, left anterior descending artery. Left main coronary artery has no evidence of high-grade stenosis. LEFT ANTERIOR DESCENDING ARTERY: This is a large-sized vessel, reaching toward the apex with a wraparound apex segment, giving rise to a very proximal diagonal branch of large caliber. The left anterior descending artery as well as branches have no evidence of obstructive coronary artery disease. LEFT CIRCUMFLEX: This is a codominant vessel, giving rise to obtuse marginal branch and distally bifurcating to PDA and PLV. The left circumflex as well as branches have no evidence of obstructive coronary artery disease. RIGHT CORONARY ARTERY: This is a codominant vessel, moderate in caliber, giving rise to a PDA and PLV distally. The right coronary artery as well as branches have no evidence of obstructive coronary disease. LEFT VENTRICULOGRAM: Left ventriculogram was not performed. HEMODYNAMICS: There was no gradient across the aortic valve. The left ventricular end- diastolic pressure was 20-24 mmHg. CONCLUSION: 1. Normal coronary arteries. 2. Mildly elevated left ventricular end-diastolic pressure. RECOMMENDATION: In view of finding anatomy, I recommend continue medical therapy with aggressive coronary risk modifications that have being initiated. Those findings and recommendation were discussed with the patient and she was in full understanding and agreement. Duration of the procedure is 19 minutes. TASHI / ARABELLAN: [id number] /
[2019-12-31] MEDS ORDERED: predniSONE 20 MG TAB PO SCH (10:30)
--- NOTE | 2019-12-31 10:45 | P.PN ---
Subjective Progress Note Date: 12/30/19 Principal diagnosis: Chest pain Acute COPD exacerbation Patient is a 54-year-old female with a known history of COPD on home oxygen, hypoglycemia, hyperlipidemia, bipolar disorder and everyday smoker came to ER with the complaints of chest pain mainly retrosternal squeezing type with radiation to the left arm and to the collarbone. Patient states that she has been having on and off chest pains for the past 1 month month lasting about few seconds but did not stay this long. Patient had chest pain yesterday lasted about 5 minutes associated with shortness of breath and increased in severity compared to her chest pains prior., Which made her to come to ER. Patient otherwise denied any complaints of nausea vomiting or diaphoresis. No palpitations. No headache or dizziness or lightheadedness. No nausea vomiting or diarrhea no abdominal pain. No fever no chills. Patient does have cough without oxygen sputum production. No recent illnesses or sick contacts. EKG showed sinus tachycardia Chest x-ray showed increased interstitial markings compared to old exam. No heart failure seen. Minimal right middle lobe atelectasis. Laboratory data showed WBC 10.9, hemoglobin 15.7, sodium 136, potassium 4.1, BUN 10 and creatinine 0.59 liver enzymes are not elevated troponin x2- Coronavirus negative. 12/30/2019 Patient is currently lying in the bed comfortably. Patient does have intermittent episodes of chest discomfort. Patient had Lexiscan stress test done yesterday showed inducible ischemia. Patient had cardiac catheterization done today. Showing nonobstructive coronaries. 2-D echocardiogram showed preserved LV systolic function with ejection fraction 55-60%, mild aortic regurgitation and mild mitral regurgitation. Currently maintained on aspirin 81 mg daily and atorvastatin 40 mg at bedtime. Patient is being continued on breathing treatments and steroids. Pulmonary and cardiology is following. Current medications reviewed. Objective - Vital Signs Vital signs: Vital Signs Temp 97.7 F 12/30/19 19:36 Pulse 84 12/30/19 19:59 Resp 16 12/30/19 19:59 BP 133/60 12/30/19 19:36 Pulse Ox 95 12/30/19 19:36 Intake & Output 12/30/19 12/30/19 12/31/19 06:59 18:59 06:59 Intake Total 0 Balance 0 Intake: Intake, IV Titration 0 Amount Sodium Chloride 0.9% 1, 0 000 ml In Empty Bag 1 bag @ 1 ML/KG/HR 86.64 mls/ hr IV .[id number] ONE Rx#: [id number] Other: # Voids 1 2 - Exam PHYSICAL EXAMINATION: Patient is lying in the bed comfortably, no acute distress, awake alert and oriented.. HEENT: Normocephalic. Neck is supple. Pupils reactive. Nostrils clear. Oral cavity is moist. Ears reveal no drainage. Neck reveals no JVD, carotid bruits, or thyromegaly. CHEST EXAMINATION: Trachea is central. Symmetrical expansion. Mild expiratory wheeze and scattered rhonchi.. CARDIAC: Normal S1, S2 with no gallops. No murmurs ABDOMEN: Soft. Bowel sounds normal. No organomegaly. No abdominal bruits. Extremities: reveal no edema. No clubbing or cyanosis Neurologically awake, alert, oriented x3 with well-coordinated movements. No focal deficits noted Skin: No rash or skin lesions. Psychiatric: Coperative. Nonsuicidal Musculoskeletal: No joint swelling or deformity. Normal range of motion. - Labs CBC & Chem 7: 12/31/19 05:49 12/31/19 05:49 Labs: Abnormal Lab Results - Last 24 Hours (Table) 12/29/19 12/30/19 12/30/19 Range/Units 21:42 06:54 11:53 POC Glucose (mg/dL) 209 H 156 H 142 H (75-99) mg/dL 12/30/19 Range/Units 17:00 POC Glucose (mg/dL) 151 H (75-99) mg/dL Assessment and Plan Assessment: Chest pain possible unstable angina. Stress test showed inducible ischemia. Post cath. Coronary artery disease nonobstructive. Acute COPD exacerbation Chronic hypoxic respiratory failure on home oxygen due to COPD Family history of significant coronary artery disease Ongoing nicotine addiction Hyperlipidemia Obesity with a BMI 38.6 Bipolar disorder DVT prophylaxis Plan: Patient will be continued on telemetry monitoring. Serial troponin x2-. Patient was started on heparin drip and cardiology was consulted. Plan for stress test showed inducible ischemia. Patient is status post cardiac cathet erization.. Patient will be continued IV steroids, breathing treatments and continue with oxygen therapy. Continue with aspirin statins and follow-up closely. Cardiology and pulmonary is on board. Further recommendations based on the clinical course. Smoking cessation has been counseled extensively. Time with Patient: Greater than 30
[2019-12-31 11:34] VITALS: BP 137/76; PULSE 88; TEMP 98
[2019-12-31 11:52] LABS: Glucose,Whole Blood 155 mg/dL (75-99)
[2019-12-31] MEDS ORDERED: IPRATROPIUM-ALBUTEROL 3 ML NEB INHALATION PRN (12:54)
--- NOTE | 2019-12-31 12:58 | P.PN ---
Subjective Progress Note Date: 12/31/19 Principal diagnosis: Chest wall pain, atypical, patient had reversible ischemia on the Lexiscan stress test, status post heart catheterization, which showed normal coronary arteries. On 12/30/2019 the patient is being seen for a follow-up. She is currently being treated for an acute COPD exacerbation. Note that she had also chest wall pain that was atypical in nature. Nevertheless, the stress test came back positive and the patient is being considered for a cardiac catheterization. She is less bronchospastic and wheezy and she is going to the combination of bronchodilators and steroids. As reported, there is no chest pain. The patient is free of any angina. No nausea. No vomiting. No diarrhea. No fever. No chills. No other complaints otherwise for now. She is afebrile with a temperature 98.0. She is hemodynamically stable with a pulse ox above 90% on room air oxygen. On 12/31/2019 patient seen in follow-up on selective care unit, she status post heart catheterization which showed normal coronary arteries. Her eating is improving, less bronchospastic on today's exam. Still requiring supplemental oxygen, creatinine 3 L, with pulse ox of 94%, afebrile, hemodynamically patient is stable, remains on oral prednisone. Vital signs are stable, hemodynamically patient is stable, denies any chest pain at today's exam. Objective - Vital Signs Vital signs: Vital Signs Temp 98 F 12/31/19 11:31 Pulse 88 12/31/19 11:31 Resp 18 12/31/19 11:31 BP 137/76 12/31/19 11:31 Pulse Ox 94 L 12/31/19 11:31 Intake & Output 12/30/19 12/31/19 12/31/19 18:59 06:59 18:59 Intake Total 0 450 100 Balance 0 450 100 Intake: IV 100 Intake, IV Titration 0 Amount Sodium Chloride 0.9% 1, 0 000 ml In Empty Bag 1 bag @ 1 ML/KG/HR 86.64 mls/ hr IV .[id number] ONE Rx#: [id number] Oral 450 Other: # Voids 2 - Exam GENERAL EXAM: Alert, very pleasant White female on 2 L of oxygen pulse ox 94%, comfortable in no apparent distress. HEAD: Normocephalic/atraumatic. EYES: Normal reaction of pupils, equal size. Conjunctiva pink, sclera white. NOSE: Clear with pink turbinates. THROAT: No erythema or exudates. NECK: No masses, no JVD, no thyroid enlargement, no adenopathy. CHEST: No chest wall deformity. Symmetrical expansion. LUNGS: Equal air entry with scattered wheezing CVS: Regular rate and rhythm, normal S1 and S2, no gallops, no murmurs, no rubs ABDOMEN: Soft, nontender. No hepatosplenomegaly, normal bowel sounds, no guarding or rigidity. EXTREMITIES: No clubbing, no edema, no cyanosis, 2+ pulses and upper and lower extremities. MUSCULOSKELETAL: Muscle strength and tone normal. SPINE: No scoliosis or deformity SKIN: No rashes CENTRAL NERVOUS SYSTEM: Alert and oriented -3. No focal deficits, tone is normal in all 4 extremities. PSYCHIATRIC: Alert and oriented -3. Appropriate affect. Intact judgment and insight. - Labs CBC & Chem 7: 12/31/19 05:49 12/31/19 05:49 Labs: Abnormal Lab Results - Last 24 Hours (Table) 12/30/19 12/30/19 12/31/19 Range/Units 17:00 20:50 01:45 WBC (3.8-10.6) k/uL Neutrophils # (1.3-7.7) k/uL Glucose (74-99) mg/dL POC Glucose (mg/dL) 151 H 251 H 200 H (75-99) mg/dL 12/31/19 12/31/19 12/31/19 Range/Units 05:49 05:49 06:55 WBC 16.9 H (3.8-10.6) k/uL Neutrophils # 14.2 H (1.3-7.7) k/uL Glucose 148 H (74-99) mg/dL POC Glucose (mg/dL) 143 H (75-99) mg/dL 12/31/19 Range/Units 11:48 WBC (3.8-10.6) k/uL Neutrophils # (1.3-7.7) k/uL Glucose (74-99) mg/dL POC Glucose (mg/dL) 155 H (75-99) mg/dL Assessment and Plan Plan: 1 chest wall pain, atypical, under investigation. The patient underwent a cardiac stress test that came back positive for reversible ischemia and for now the plan is to proceed with a cardiac catheterization. 2 COPD exacerbation with secondary shortness of breath, improving and the patient is a smoker spastic and wheezy 3 chronic dyspnea, multifactorial, improving , 4 limited fibrosis and lung bases bilaterally, consistent underlying ILD secondary to chronic smoking 5 hyperlipidemia 6 obesity with a BMI of 38.6 7 smoker 8 bipolar disorder Plan: continue current medical treatment, continue oral prednisone, we will add DuoNeb, we'll add Symbicort, we'll continue to follow I performed a history & physical examination of the patient and discussed their management with my nurse practitioner, Amee Chavez. I reviewed the nurse practitioner's note and agree with the documented findings and plan of care. Lung sounds are positive for diffuse wheezes throughout the lung sommers. The findings and the impression was discussed with the patient. I attest to the documentation by the nurse practitioner. Time with Patient: Less than 30
[2019-12-31] MEDS ORDERED: IPRATROPIUM-ALBUTEROL 3 ML NEB INHALATION SCH (16:00)
[2019-12-31] MEDS ORDERED: SYMBICORT 160-4.5 MCG INHALER INHALATION SCH (20:00)
[2020-01-01] MEDS ORDERED: ASPIRIN 81 MG PO SCH (09:00)
== END 2019-12-31 14:12 | disposition home or self-care (01) | DRG 191 ==
LOC: EC 15:28 → 1SOBS 17:28 → OBSVTOIN 12-30 14:31 → 3SCARD 12-31 08:51
PROVIDERS: ADMIT Internal Medicine; ATTEND Internal Medicine
PROC: B2111ZZ Fluoroscopy of Multiple Coronary Arteries using Low Osmolar Contrast (ICD-10-PCS; principal; 2019-12-31 07:30)
DX: J44.1 Chronic obstructive pulmonary disease with (acute) exacerbation (principal); J96.11 Chronic respiratory failure with hypoxia; R07.89 Other chest pain; E78.5 Hyperlipidemia, unspecified; E78.00 Pure hypercholesterolemia, unspecified; E66.9 Obesity, unspecified; F31.9 Bipolar disorder, unspecified; F17.210 Nicotine dependence, cigarettes, uncomplicated; J84.10 Pulmonary fibrosis, unspecified; Z20.828 Contact with and (suspected) exposure to other viral communicable diseases; Z68.38 Body mass index [BMI] 38.0-38.9, adult; Z79.82 Long term (current) use of aspirin; Z79.51 Long term (current) use of inhaled steroids; Z79.899 Other long term (current) drug therapy; Z88.5 Allergy status to narcotic agent; Z88.8 Allergy status to other drugs, medicaments and biological substances; Z90.710 Acquired absence of both cervix and uterus; Z98.890 Other specified postprocedural states; Z98.891 History of uterine scar from previous surgery; Z98.51 Tubal ligation status; Z82.49 Family history of ischemic heart disease and other diseases of the circulatory system; Z83.79 Family history of other diseases of the digestive system; Z92.3 Personal history of irradiation; Z99.81 Dependence on supplemental oxygen
CPT/HCPCS: 36415; 71046; 78452; 80048; 80053; 80061; 83735; 84484; 85025; 85610; 85730; 93005; 93017; 93306; 93458; 94640; 96374; 96375; 99291

== ENCOUNTER 2020-02-25 20:38 | Emergency (ER) | payer BC ==
[2020-02-25 20:44] VITALS: TEMP 98.9
--- NOTE | 2020-02-25 21:05 | ED ---
ENT HPI - General Chief complaint: ENT Stated complaint: ENT Time Seen by Provider: 02/25/20 20:49 Source: patient, family Mode of arrival: ambulatory Limitations: no limitations - History of Present Illness Initial comments: Patient is a 54-year-old female presenting to the emergency Department with complaints of a feeling like something is in her right ear 3 days. Patient is also complaining of some very mild pressure on the outside of her ear. She denies having any other symptoms associated with this including no fever, no chills. She denies any recent illness, no cough or nasal drainage. She denies any trauma to her ear any falls. She denies a history of any trauma to her in her ear. She has no further complaints at this time. Upon arrival to the ER her vitals are stable. - Related Data Home Medications Medication Instructions Recorded Confirmed Albuterol Inhaler [Ventolin Hfa 2 puff INHALATION RT-Q6H PRN 11/12/19 12/28/19 Inhaler] Budesonide-Formot 160-4.5 Mcg 2 puff INHALATION RT-BID 11/12/19 12/28/19 [Symbicort 160-4.5 Mcg Inhaler] FLUoxetine HCL [PROzac] 20 mg PO HS 11/12/19 12/28/19 diazePAM [Diazepam] 10 mg PO TID PRN 11/12/19 12/28/19 lamoTRIgine 100 mg PO DAILY 11/12/19 12/28/19 lamoTRIgine 200 mg PO HS 11/12/19 12/28/19 risperiDONE 3 mg PO HS 11/12/19 12/28/19 FLUoxetine HCL [PROzac] 40 mg PO HS 12/28/19 12/28/19 Simvastatin [Zocor] 40 mg PO HS 12/28/19 12/28/19 risperiDONE [RisperDAL] 1 mg PO DAILY 12/28/19 12/28/19 Previous Rx's Medication Instructions Recorded predniSONE See Taper PO DIRECTED #24 tab 12/31/19 Allergies Allergy/AdvReac Type Severity Reaction Status Date / Time codeine Allergy Rash/Hives Verified 02/25/20 20:44 nitroglycerin Allergy Anaphylaxis Verified 02/25/20 20:44 Review of Systems ROS Statement: Those systems with pertinent positive or pertinent negative responses have been documented in the HPI. ROS Other: All systems not noted in ROS Statement are negative. Past Medical History Past Medical History: COPD, Hyperlipidemia Additional Past Medical History / Comment(s): heart murmur, hypoglycemia History of Any Multi-Drug Resistant Organisms: None Reported Past Surgical History: Section, Hysterectomy, Tubal Ligation Past Anesthesia/Blood Transfusion Reactions: No Reported Reaction Past Psychological History: Bipolar Smoking Status: Current every day smoker Past Alcohol Use History: None Reported Past Drug Use History: None Reported - Past Family History Father Family Medical History: Coronary Artery Disease (CAD) Mother Family Medical History: Liver Disease General Exam - General Exam Comments Initial Comments: GENERAL: Patient is well-developed and well-nourished. Patient is nontoxic and in no acute distress. HEAD: Atraumatic, normocephalic. EYES: Pupils equal round and reactive to light, extraocular movements intact, sclera anicteric, conjunctiva are normal. Eyelids were unremarkable. ENT: TMs normal, nares patent, oropharynx clear without exudates. Moist mucous membranes. NECK: Normal range of motion, supple without lymphadenopathy or JVD. LUNGS: Unlabored respirations. Breath sounds clear to auscultation bilaterally and equal. No wheezes rales or rhonchi. HEART: Regular rate and rhythm without murmurs, rubs or gallops. ABDOMEN: Soft, nontender, normoactive bowel sounds. No guarding, no rebound. No masses appreciated. : Deferred MUSCULOSKELETAL: Normal extremities with adequate strength and normal range of motion, no pitting or edema. No clubbing or cyanosis. NEUROLOGICAL: Patient is alert and oriented x 3. Motor and sensory are also intact. Normal speech, normal gait. PSYCH: Normal mood, normal affect. SKIN: Warm, Dry, normal turgor, no rashes or lesions noted. Limitations: no limitations Course Vital Signs 02/25/20 02/25/20 20:40 21:29 Temperature 98.9 F 98.9 F Pulse Rate 99 87 Respiratory 22 21 Rate Blood Pressure 136/71 125/79 O2 Sat by Pulse 96 99 Oximetry Medical Decision Making - Medical Decision Making Patient is a 54-year-old female here for a feeling of something in her right ear 3 days, as well as some mild pressure. She has no other symptoms associated with this. No recent illness. No traumas or falls. Her exam is unremarkable, her eardrum might be slightly bulging however not erythematous or signs of infection. I recommended patient trial of Claritin or Zyrtec x 1 week to see if it improves symptoms. I also recommended limiting the amount of Q-tips she uses. If symptoms persist I recommend following up with PCP. Patient is in agreement with this plan of care. She is stable for discharge. Disposition Clinical Impression: Right ear pain Disposition: HOME SELF-CARE Condition: Stable Instructions (If sedation given, give patient instructions): Earache (ED) Additional Instructions: Please return to the Emergency Department if symptoms worsen or any other concerns. Trial of Zyrtec or Claritin as discussed for 1 week. If symptoms persist, follow up with PCP. Is patient prescribed a controlled substance at d/c from ED?: No Referrals: Tim Chao MD [Primary Care Provider] - 1-2 days
[2020-02-25 21:29] VITALS: BP 125/79; PULSE 87; RESP 21
== END 2020-02-25 21:29 | disposition home or self-care (01) ==
LOC: EC 20:38
DX: H92.01 Otalgia, right ear (principal); J44.9 Chronic obstructive pulmonary disease, unspecified; F31.9 Bipolar disorder, unspecified; E78.5 Hyperlipidemia, unspecified; F17.200 Nicotine dependence, unspecified, uncomplicated; Z79.51 Long term (current) use of inhaled steroids; Z79.899 Other long term (current) drug therapy; Z88.5 Allergy status to narcotic agent; Z88.8 Allergy status to other drugs, medicaments and biological substances
CPT/HCPCS: 99282

== ENCOUNTER → 2023-08-27 | Outpatient (CLI) | payer MEDICARE ==
--- NOTE | 2023-08-27 14:52 | CT ---
EXAMINATION TYPE: CT brain wo con DATE OF EXAM: 08/27/2023 COMPARISON: None available. HISTORY: headache, visual changes CT DLP: 1147 mGycm Automated exposure control for dose reduction was used. FINDINGS: There is no acute intracranial hemorrhage, mass, mass effect, midline shift, extra axial fluid collec tion or hydrocephalus. The harrison-white distinction is intact without evidence of an acute major vessel infarct. The visualized paranasal sinuses and mastoid air cells are clear. IMPRESSION: NO ACUTE INTRACRANIAL PROCESS.
== END | disposition home or self-care (01) ==
LOC: RADCTMAIN 14:14
PROVIDERS: ATTEND Family Medicine
DX: H53.9 Unspecified visual disturbance (principal); R51.9 Headache, unspecified; R41.3 Other amnesia; W19.XXXA Unspecified fall, initial encounter
CPT/HCPCS: 70450